=== PATIENT | female | born 1945 | race Caucasian/White ===

== ENCOUNTER 2020-01-17 12:02 | Emergency (ER) | payer OTHER ==
[~2020-01-17] VITALS: Ht 154.9 cm; Wt 76.2 kg
[~2020-01-17 12:02] MED LIST: AMITRIPTYLINE H10 MG PO; AMLODIPINE BESY10 MG PO; ASPIR 8181 MG PO; CALCIUM 600 +1 EAC2 PO; CLONIDINE HCL0.1 MG PO; FISH OIL PO; FLUCONAZOLE150 MG PO; LEVOTHYROXINE75 MCG PO; LUMIGAN EYE; METOPROLOL SUC100 MG PO; MULTIVITAMINS1 EAC7 PO; NORCO 5-325 TA1 EACH PO; OMEPRAZOLE20 M1 PO; POTASSIUM GLUCONATE PO; PROBIOTIC PO; TRIAMTERENE-HC1 EAC1 PO; TYLENOL WITH C1 EACH PO
--- OUTSIDE RECORDS SUMMARY | 2020-01-17 12:18 | XMS REPORT | Continuity of Care Document ---
Author Author Joann Pathgather ANNETTE Hernandez [facility] Address Unknown Phone Unavailable Care Team Providers Care Mortgage Lender Name Role Phone [employer] Information [employer] Unavailable Un available Problems Problem Status Onset Date Classification Date Reported Comments Source Hypertension Active 08/04/2013 [facility] Vaginitis Active 08/04/2013 [facility] Hypothyroidism Active 08/04/2013 [facility] Medications Medication Details Route Status Patient Instructions Ordering Provider Order Date Source Metoprolol Succinate ER 100 MG Oral Tabl et Extended Release 24 Hour ; Start Date: 08/03/2013; End Date: 05/1899 (Active) Active 08/03/2013 [facility] Triamterene-HCTZ 75-50 MG Oral Tablet ; Start Date: 06/29/2013; End Date: (Active) Active 06/29/2013 [facility] Clotrimazole-Betamethasone 1-0.05 % External Cream ; Start Date: 01/03/2013; End Date: 03/04/2013 (Active) Active 01/03/2013 [facility] Bystolic 10 MG Oral Tablet ; S tart Date: 03/15/2012; End Date: (Active) Active 03/15/2012 [facility] AmLODIPine Besylate 10 MG Oral Tablet ; Start Date: 03/15/2012; End Date: (Active) Active 03/15/2012 [facility] Chewable Calcium 1250 MG Oral Tablet Chewable ; Start Date: 03/15/2012 (Active) Active 03/15/2012 [facility] Multivitamins Oral Tablet ; St art Date: 03/15/2012 (Active) Active 03/15/2012 [facility] PriLOSEC OTC 20 MG Oral Tablet Delayed Release ; Start Date: 03/15/2012 (Active) Active 03/15/2012 [facility] Levothyroxine Sodium 75 MCG Oral Tablet ; Start Date: 03/15/2012; End Date: (Active) Active 03/15/2012 [facility] Hydrochlorothiazide 25 MG Oral Tablet ; Start Date: 03/15/2012 (Active) Active 03/15/2012 [facility] Amitriptyline HCl 10 MG Oral Tablet ; Start Date: 03/15/2012; End Date: (Active) Active 03/15/2012 [facility] Potassium 99 MG Oral Tablet ; Start Date: 03/15/2012 (Active) Active 03/15/2012 [facility] Fish Oil 1200 MG Oral Capsule ; Start Date: 03/15/2012 (Active) Active 03/15/2012 [facility] Tylenol Arthritis Pain 650 MG Oral Table t Extended Release ; Start Date: 03/15/2012 (Active) Active 03/15/2012 [facility] CloNIDine HCl 0.1 MG Oral Tablet ; Start Date: 03/15/2012; End Date: (Active) Active 03/15/2012 [facility] Multivitamins TABS ; Start Beny e: 03/15/2012 (Active) Active 03/15/2012 [facility] Chewable Calcium 1250 MG CHEW ; Start Date: 03/15/2012 (Active) Active 03/15/2012 [facility] Clotrimazole-Betamethasone 1-0.05 % External Cream ; Start Date: ; End Date: 2013 (Active) Active [facility] B-12 100 MCG Oral Tablet (Act clement) Active [facility] Aspirin 81 MG Oral Tablet (Ac tive) Active [facility] Symbicort 80-4.5 MCG/ACT Inhalation Aerosol (Active) Active [facility] Clotrimazole-Betamethasone 1-0.05 % External Cream (Active) Active [facility] Allergies, Adverse Reactions, Alerts Substance Category Reaction Severity Reaction type Status Date Reported Comments Source Dilaudid TABS drug allergy drug allergy Active [facility] Tetanus Toxoid Fluid SOLN drug allergy drug aller gy Active [facility] Immunizations Immunization Date Given Site Status Last Updated Comments Source Fluzone Intramuscular Injectable 02/20/2013 completed [facility] Influenza completed [facility] Results No Data Provided for This Section Pathology Reports No Data Provided for This Section Diagnostic Reports No Data Provided for This Section Consultation Notes No Data Provided for This Section Discharge Summaries No Data Provided for This Section History and Physicals No Data Provided for This Section Vital Signs No Data Provided for This Section Encounters Location Location Details Encounter Type Encounter Number Reason For Visit Attending Provider ADM Date DC Date Status Source AUDIT [id number] 04/05/2012 04/06/2012 [facility] [id number] 04/11/2012 04/12/2012 [facility] A[facility] [id number] 02/17/2013 02/17/2013 [facility] Sergio ELDRIDGE kevin: NEVESSAUD LAYNE, Status: Pen, Time: 11:45 AM [id number] 02/21/20 13 02/17/2013 [facility] AUDIT [id number] 06/29/2013 06/29/2013 [facility] AUDIT [id number] 08/03/2013 08/03/2013 [facility] AUDIT [id number] 08/04/2013 08/04/2013 [facility] Procedures No Data Provided for This Section Assessment and Plan No Data Provided for This Section Plan of Care Plan of Care Date Source [QLH] CBC (INCLUDES DIFF/PLT) 08/03/2013 Routine[QLH] CMP W/EGFR 08/03/2013 Routine[QH] LIPID PANEL WITH REFLEX TO DIRECT LDL 08/03/2013 Routine[QLH] TSH, 3RD GENERATION 08/03/2013 Routine 08/03/2013 [facility] Social History Social History Date Source Former Smoker (V15.82); (Active) Marital History - Currently (Active) Occupation: Comments: retired (Active) 08/04/2013 [facility] Family History No Data Provided for This Section Advance Directives Order Name Results Value Date Source Advance Directives Advance Dir ectives No Advance Directives available. 08/04/2013 [facility] Advance Directives Advance Dir ectives No Advance Directives available. 08/03/2013 [facility] Advance Directives Advance Dir ectives No Advance Directives available. 06/29/2013 [facility] Advance Directives Advance Dir ectives No Advance Directives available. 02/17/2013 [facility] Advance Directives Advance Dir ectives No Advance Directives available. 04/12/2012 [facility] Advance Directives Advance Dir ectives No Advance Directives available. 04/06/2012 [facility] Functional Status No Data Provided for This Section
--- OUTSIDE RECORDS SUMMARY | 2020-01-17 12:19 | XMS REPORT | Summary of Care ---
Author Author CAESAR Hurtado, ANNETTE MATTHEWS Organization Unknown Address Unknown Phone Unavailable Care Team Providers Care Sports Media Name Role Phone TOBIAS Denny, HUNTER Unavailable Unavailable CAESAR Hurtado, TIMMY Unavailable Unavailable DHEERAJ ALLEN SD, BERTA BREEN Unavailable Unavailable CAESAR ALLEN SD, TIMMY Unavailable Unavailable NKECHI SHELDON SD, TRISTON Unavailable Unavailable DHEERAJ Hurtado, BERTA Unavailable Unavailable TOBIAS MCGINNIS, HUNTER Unavailable Unavailable Anurag Terrell MD Unavailable Unavailable BRANDI ALLEN, FELY Menon Unavailable Unavailable FILEMON WRIGHT-C, CHERYL SUAZO Unavailable Unavailable LUIS ALLEN SD, UZIEL Lane Unavailable Unavailable Unavailable Unavailable Functional Status Name Dates Details Functional status health issues are not documented Status: Name Dates Details Cognitive status health issues are not d ocumented Status: Problems Name Dates Details Hand pain (729.5, M79.643) Status: Active Vitamin D deficiency (268.9, E55.9) Status: Active Advance directive discussed with patient (V65.49, Z71.89) Status: Active Encounter for mini-mental status examina tion Status: Active At moderate risk for fall (V15.88, Z91.8 1) Status: Active Colonoscopy refused (V64.2, Z53.20) Status: Active 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, 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: Active 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, M19.049) Status: Active 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, 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: Active Visit for screening mammogram (V76.12, Z 12.31) Status: Active BMI 33.0-33.9,adult (V85.33, Z68.33) Status: Active Encounter for monitoring allopurinol the rapy (V58.83, Z51.81) Status: Active Arthralgia of right knee (719.46, M25.56 1) Status: Active Essential (primary) hypertension (401.9, I10) Status: Active Hypothyroidism (244.9, E03.9) Status: Active Gout (274.9, M10.9) Status: Active Candidal intertrigo (112.3, B37.2) Status: Active Atypical mole (216.9, D22.9) Status: Active Ear pressure (388.8, H93.8X9) Status: Active Decreased hearing (389.9, H91.90) Status: Active Erosive osteoarthritis of both hands (71 5.89, M15.4) Status: Active Generalized osteoarthritis of multiple s ites (715.09, M15.9) Status: Active On prednisone therapy (V58.65, Z79.52) Status: Active Hypokalemia (276.8, E87.6) Status: Active Right wrist pain (719.43, M25.531) Status: Active Pain of wrist after trauma (719.43, M25. 539) Status: Active Medications Name Dates Details cloNIDine HCl - 0.1 MG Oral Tablet TAKE 1 TABLET TWICE DAILY. Quantity: 60 HUNTER EDOUARD * Start : 15-Mar-2012 Active Levothyroxine Sodium 75 MCG Oral Tablet TAKE 1 TABLET DAILY * Quantity: 90 Refills: 1 TOBIAS [address].HUNTER [place] * Start : 15-Mar-2012 Active Multivitamins TABS TAKE 1 TABLET DAILY. * Refills: 0 M.D. * Start : 15-Mar-2012 Active Fish Oil 1200 MG Oral Capsule TAKE 2 CAPSULE TWICE DAILY * Refills: 0 M.D. * Start : 15-Mar-2012 Active Triamterene-HCTZ 75-50 MG Oral Tablet TAKE 1 TABLET BY MOUTH DAILY * Quantity: 90 Refills: 1 HUNTER EDOUARD * Start : 29-Jun-2013 Active Aspirin 81 MG TABS TAKE 1 TABLET DAILY. * Refills: 0 M.D. Active Metoprolol Succinate ER 100 MG Oral Tablet Extended Release 24 Hour TAKE 1 TABLET BY MOUTH DAILY * Quantity: 90 Refills: 1 HUNTER EDOUARD * Start : 03-Aug-2013 Active Tylenol Arthritis Pain 650 MG TBCR TAKE 2 TABLET 2 TIMES DAILY NEEDED. * Refills: 0 M.D. * Start : 25-Jan-2015 Active Omeprazole 20 MG Oral Capsule Delayed Release * Refills: 0 M.D. Active Latanoprost 0.005 % Ophthalmic Solution INSTILL 1 DROP IN BOTH EYES AT BEDTIME. * Refills: 0 M.D. Active 2.5 ML Bottle Iron TABS TAKE 1 TABLET DAILY * Refills: 0 M.D. Active Amitriptyline HCl - 10 MG Oral Tablet TAKE 1-2 TABLET BY MOUTH AT BEDTIME * Quantity: 150 Refills: 1 HUNTER EDOUARD Active Calcium 1250 MG TABS TAKE 1 TABLET TWICE DAILY * Refills: 0 M.D. Active Allopurinol 300 MG Oral Tablet TAKE 1 TABLET BY MOUTH DAILY * Quantity: 90 Refills: 1 HUNTER EDOUARD * Start : 26-Sep-2018 Active Imodium A-D 2 MG Oral Capsule TAKE 0.5 CAPSULE DAILY * Refills: 0 M.D. * Start : 28-Sep-2018 Active predniSONE 2.5 MG Oral Tablet Take 1 or 2 tablets on Mondays, Wednesdays, Fridays prn joint pain. * Quantity: 72 Refills: 0 VIDAL FRANCISCO M.D.YIN * Start : 28-Sep-2018 Active Clotrimazole 1 % External Cream APPLY 2-3 TIMES DAILY TO AFFECTED AREA(S) FOR UP TO 2-3 WEEKS * Quantity: 1 Refills: 1 TOBIAS Hill.AHUNTER [place] * Start : 01-Sep-2019 Active 45 GM Tube Allergies and Adverse Reactions Name Dates Details Dilaudid TABS (Allergy) Status: Active Tetanus Toxoid Fluid SOLN (Allergy) Stat us: Active Past Medical History Name Dates Details History of arthritis (V13.4, Z87.39) Status: Resolved History of backache (V13.59, Z87.39) Status: Resolved History of Colon cancer screening (V76.5 1, Z12.11) Status: Resolved History of Depression screening (V79.0, Z13.31) Status: Resolved History of Depression screening (V79.0, Z13.31) Status: Resolved History of Depression screening (V79.0, Z13.31) Status: Resolved History of essential hypertension (V12.5 9, Z86.79) Status: Resolved History of Finger deformity (736.20, M20 .009) Status: Resolved History of Hay fever (477.9, J30.1) Status: Resolved History of hemorrhoids (V13.89, Z87.19) Status: Resolved History of History of cosmetic surgery ( V45.89, Z98.890) Status: Resolved History of hypertension (V12.59, Z86.79) Status: Resolved History of influenza vaccination (V49.89 , Z92.29) Status: Resolved History of influenza vaccination (V49.89 , Z92.29) Status: Resolved History of Left hip pain (719.45, M25.55 2) Status: Resolved History of Left wrist sprain (842.00, S6 3.502A) Status: Resolved History of Multiparity (V61.5, Z64.1) Status: Resolved History of nausea (V12.79, Z87.898) Status: Resolved History of Neck pain on right side (723. 1, M54.2) Status: Resolved History of Neck strain (847.0, S16.1XXA) Status: Resolved History of persistent cough (V12.69, Z87 .09) Status: Resolved History of pneumococcal vaccination (V49 .89, Z92.29) Status: Resolved History of pneumococcal vaccination (V49 .89, Z92.29) Status: Resolved History of Rectal pain (569.42, K62.89) Status: Resolved History of thyroid disease (V12.29, Z86. 39) Status: Resolved History of vaginitis (V13.29, Z87.42) Status: Resolved History of Wrist pain, acute, left (719. 43, M25.532) Status: Resolved Procedures Procedure Dates Details [QL] CMP W/EGFR Date: 13-Dec-2019 MR Wrist wo contrast [id number] Date: 18-Dec-2019 History of Wrist Surgery Completed History of Shoulder Surgery Completed History of Leg Repair Completed History of PTCA Completed Immunization Name Dates Details Influenza on: 15-Mar-2012 Fluzone INJ Lot #: [id number] on: 20-Feb-2013 Influenza on: 20-Feb-2015 Prevnar 13 Intramuscular Suspension Lot #: [id number] on: 22-Mar-2015 Fluzone Quadrivalent 0.5 ML Intramuscula r Suspension Prefilled Syringe Lot #: [id number] on: 28-Jan-2016 Fluzone Quadrivalent 0.5 ML Intramuscula r Suspension Prefilled Syringe Lot #: [id number] on: 28-Jan-2016 Fluzone Quadrivalent 0.5 ML Intramuscula r Suspension Prefilled Syringe Lot #: [id number] on: 15-Mar-2017 Pneumococcal polysaccharide vaccine, 23 valent Lot #: [id number] on: 15-Mar-2017 Fluzone High-Dose 0.5 ML Intramuscular S uspension Prefilled Syringe Lot #: [id number] on: 26-Jan-2018 Fluzone High-Dose 0.5 ML Intramuscular S uspension Prefilled Syringe Lot #: [id number] on: 01-Mar-2019 Family History Name Dates Details Family history of myocardial infarction (V17.3, Z82.49) Status: Active Name Dates Details Family history of myocardial infarction (V17.3, Z82.49) Status: Active Name Dates Details Family history of Heart trouble (429.9, I51.9) Status: Active Family history of cardiac disorder (V17. 49, Z82.49) Status: Active Family history of hypertension (V17.49, Z82.49) Status: Active Family history of arthritis (V17.7, Z82. 61) Status: Active Name Dates Details Family history of Heart trouble (429.9, I51.9) Status: Active Family history of cardiac disorder (V17. 49, Z82.49) Status: Active Family history of hypertension (V17.49, Z82.49) Status: Active Family history of arthritis (V17.7, Z82. 61) Status: Active Name Dates Details Family history of colitis (V18.59, Z83.7 9) Status: Active Family history of Heart trouble (429.9, I51.9) Status: Active Family history of cardiac disorder (V17. 49, Z82.49) Status: Active Family history of hypertension (V17.49, Z82.49) Status: Active Family history of arthritis (V17.7, Z82. 61) Status: Active Family history of TIAs (V17.1, Z82.3) Status: Active Name Dates Details Family history of Heart trouble (429.9, I51.9) Status: Active Family history of cardiac disorder (V17. 49, Z82.49) Status: Active Family history of hypertension (V17.49, Z82.49) Status: Active Family history of arthritis (V17.7, Z82. 61) Status: Active Social History Name Dates Details - Status: Name Dates Details Ex-smoker (finding) Ex-smoker (finding) Vital Signs Date Test Result Details :16 Systolic blood pressure 115 mm[Hg] Status: Comments : Location: RUE; Position: Sitting Diastolic blood pressure 72 mm[Hg] Status: Comment s: Location: RUE; Position: Sitting Body height 61 in Status: Weight 166 lb Status: Body mass index (BMI) [Ratio] 31.37 kg/m2 Status: Body surface area Derived from formula 1.75 m2 S tatus: Body temperature 96.8 f Status: Heart Rate 78 /min Status: Respiratory rate 15 /min Status: :30 Systolic blood pressure 129 mm[Hg] Status: Comments : Location: LUE; Position: Sitting Diastolic blood pressure 79 mm[Hg] Status: Comment s: [place] [facility] [place] Position: Sitting Body height 61 in Status: Weight 166.5 lb Status: Body mass index (BMI) [Ratio] 31.46 kg/m2 Status: Body surface area Derived from formula 1.75 m2 S tatus: Body temperature 96 f Status: Heart Rate 83 /min Status: Respiratory rate 14 /min Status: Results Date Description Value Details :52 [QL] CMP W/EGFR Comments: REPORT COM MENT:FASTING:NO GLUCOSE 120 mg/dl (Normal) Range: 65-13 9 Comments: Non-fasting reference interval UREA NITROGEN (BUN) 14 mg/dl (Normal) Range: 7- 25 CREATININE 1.05 mg/dl (Above high threshol d) Range: 0.60-0.93 Comments: For patients >49 years of age, the reference limitfor Creatinine is approximately 13% higher for peopleidentified as -Danish. eGFR NON-AFR. SENEGAL[place] 52 {ML/MIN/1.7} (Below l ow threshold) Range: > OR = 60 eGFR 61 {ML/MIN/1.7} (Normal) Range: > OR = 60 BUN/CREATININE RATIO 13 {CALC} (Normal) Range: 6-22 SODIUM 143 mmol/L (Normal) Range: 135- 146 POTASSIUM 3.1 mmol/L (Below low threshold ) Range: 3.5-5.3 CHLORIDE 103 mmol/L (Normal) Range: 98-1 10 CARBON DIOXIDE 31 mmol/L (Normal) Range: 20-32 CALCIUM 9.6 mg/dl (Normal) Range: 8.6-1 0.4 PROTEIN, TOTAL 5.9 g/dl (Below low threshold) Range: 6.1-8.1 ALBUMIN 3.6 g/dl (Normal) Range: 3.6-5. 1 GLOBULIN 2.3 {G/DL__CALC} (Normal) Range : 1.9-3.7 ALBUMIN/GLOBULIN RATIO 1.6 {CALC} (Normal) Rang e: 1.0-2.5 BILIRUBIN, TOTAL 0.3 mg/dl (Normal) Range: 0.2- 1.2 ALKALINE PHOSPHATASE 46 u/l (Normal) Range: 37- 153 AST 15 u/l (Normal) Range: 10-35 ALT 9 u/l (Normal) Range: 6-29 :52 [QL] CBC (INCLUDES DIFF/PLT) Comments: REPORT COMMENT:FASTING:NO WHITE BLOOD CELL COUNT 5.1 {Thousand/u} (Normal ) Range: 3.8-10.8 RED BLOOD CELL COUNT 3.65 {Million/uL} (Below l ow threshold) Range: 3.80-5.10 HEMOGLOBIN 12.0 g/dl (Normal) Range: 11.7- 15.5 HEMATOCRIT 35.1 % (Normal) Range: 35.0-45. 0 MCV 96.2 fL (Normal) Range: 80.0-10 0.0 MCH 32.9 pg (Normal) Range: 27.0-33 .0 MCHC 34.2 g/dl (Normal) Range: 32.0- 36.0 RDW 13.3 % (Normal) Range: 11.0-15. 0 PLATELET COUNT 277 {Thousand/u} (Normal) Range : 140-400 MPV 9.8 fL (Normal) Range: 7.5-12.5 ABSOLUTE NEUTROPHILS 2392 {cells/uL} (Normal) R eileen: 3041-3370 ABSOLUTE LYMPHOCYTES 2254 {cells/uL} (Normal) R eileen: 850-3900 ABSOLUTE MONOCYTES 383 {cells/uL} (Normal) Rang e: 200-950 ABSOLUTE EOSINOPHILS 51 {cells/uL} (Normal) Ran ge: 15-500 ABSOLUTE BASOPHILS 20 {cells/uL} (Normal) Range : 0-200 NEUTROPHILS 46.9 % (Normal) LYMPHOCYTES 44.2 % (Normal) MONOCYTES 7.5 % (Normal) EOSINOPHILS 1.0 % (Normal) BASOPHILS 0.4 % (Normal) :27 XRAY Wrist complete ( min.3 views) [id number] Wrist complete ( min.3 views) SEE NOTES Co mments: EXAM: Wrist complete DXHISTORY: - M25.531 Pain in right wrist; M15.9 Polyosteoarthritis,unspecified;M15.4 Erosive (osteo)arthritis; Z79.52 correction (current) useof systemic steroidsCOMPARISON: None3 views of the right wristFINDINGS:There is advanced joint space narrowing at the thumb carpometacarpal andtriscaphe joints. No fracture or dislocation is seen.IMPRESSION: Advanced degenerative change.--Read by: Camryn Berry MDDictated Date/time: 12/15/19 15:08Electronically Signed by: Camryn Berry MD 12/14/2014:10FINAL REPORT Plan of Care Name Dates Details Planned Observations Planned Goals not documented Planned Encounters Appointment; TIMMY FRANCISCO M.D. On: 11-Jan-2020 14:00 Appointment; MYAH BOWIE M.D. On: 01-Mar-2020 14:45 Interventions Provided Discussion/Summary* Dear Ms. CARTER, * As stated in the voicemail I left for you, your wrist x-rays show osteoarthritis. I'm ordering a right wrist MRI to look for a trauma-related tear along your wrist. * Sincerely, * Dr. Francisco Instructions Name Dates Details Instructions not documented Encounters Appointment; HUNTER COLLADO P.A. Encounter Diagnosis: Problem not documented On: 26-Jan-2018 10:30 Appointment; HUNTER COLLADO P.A. Encounter Diagnosis: Problem not documented On: 22-Feb-2018 13:30 Appointment; FELY PAZ M.D. Encounter Diagnosis: Problem not documented On: 10-Mar-2018 13:00 Appointment; HUNTER COLLADO P.A. Encounter Diagnosis: Problem not documented On: 19-Apr-2018 13:00 Appointment; CHERYL COLBERT APRN Encounter Diagnosis: Problem not documented On: 10-Jun-2018 16:15 Appointment; FELY PAZ M.D. Encounter Diagnosis: Problem not documented On: 16-Jun-2018 13:15 Appointment; FELY PAZ M.D. Encounter Diagnosis: Problem not documented On: 07-Jul-2018 14:45 Appointment; FELY PAZ M.D. Encounter Diagnosis: Problem not documented On: 26-Jul-2018 9:45 Appointment; FELY PAZ M.D. Encounter Diagnosis: Problem not documented On: 06-Sep-2018 13:00 Appointment; HUNTER COLLADO P.A. Encounter Diagnosis: Problem not documented On: 22-Sep-2018 14:30 Appointment; TIMMY FRANCISCO M.D. Encounter Diagnosis: Problem not documented On: 28-Sep-2018 15:00 Appointment; TIMMY FRANCISCO M.D. Encounter Diagnosis: Problem not documented On: 07-Nov-2018 14:30 Appointment; TIMMY FRANCISCO M.D. Encounter Diagnosis: Problem not documented On: 08-Dec-2018 14:00 Appointment; FELY PAZ M.D. Encounter Diagnosis: Problem not documented On: 22-Dec-2018 13:00 Appointment; TRISTON ARBOLEDA D.O. Encounter Diagnosis: Problem not documented On: 01-Mar-2019 16:00 Appointment; HUNTER COLLADO P.A. Encounter Diagnosis: Problem not documented On: 30-Mar-2019 14:30 Appointment; TIMMY FRANCISCO M.D. Encounter Diagnosis: Problem not documented On: 12-Jun-2019 14:30 Appointment; SIRIA CASTANEDA APRN Encounter Diagnosis: Problem not documented On: 01-Sep-2019 10:30 Appointment; HUNTER COLLADO P.A. Encounter Diagnosis: Problem not documented On: 21-Sep-2019 11:00 Appointment; HUNTER COLLADO P.A. Encounter Diagnosis: Problem not documented On: 06-Dec-2019 14:30 Appointment; TIMMY FRANCISCO M.D. Encounter Diagnosis: Problem not documented On: 11-Dec-2019 14:00
--- OUTSIDE RECORDS SUMMARY | 2020-01-17 12:19 | XMS REPORT | Summary of Care ---
Author ANNETTE Warren Organization Unknown Address Unknown Phone Unavailable Care Team Providers Care Manager Of Finance Name Role Phone TOBIAS Denny, HUNTER Unavailable Unavailable CAESAR Hurtado, TIMMY Unavailable Unavailable DHEERAJ ALLEN [place], BERTA BREEN Unavailable Unavailable CAESAR ALLEN [place], TIMMY Unavailable Unavailable NKECHI SHELDON [place], TRISTON Unavailable Unavailable DHEERAJ Hurtado, BERTA Unavailable Unavailable TOBIAS MCGINNIS, HUNTER Unavailable Unavailable Anurag Terrell MD Unavailable Unavailable BRANDI ALLEN, FELY Menon Unavailable Unavailable FILEMON WRIGHT-C, CHERYL SUAZO Unavailable Unavailable LUIS ALLEN [place], UZIEL Lane Unavailable Unavailable Unavailable Unavailable Functional [...] Active Decreased hearing (389.9, H91.90) Status: Active Right wrist pain (719.43, M25.531) Status: Active 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 Quantity: 60 HUNTER EDOUARD * Start : 15-Mar-2012 Active Levothyroxine Sodium 75 MCG Oral Tablet TAKE 1 TABLET DAILY * Quantity: 90 Refills: 1 HUNTER EDOUARD * Start : 15-Mar-2012 Active Multivitamins TABS TAKE 1 TABLET DAILY. * Refills: 0 * Start : 15-Mar-2012 Active Fish Oil 1200 MG Oral Capsule TAKE 2 CAPSULE TWICE DAILY * Refills: 0 * Start : 15-Mar-2012 Active Triamterene-HCTZ 75-50 MG Oral Tablet TAKE 1 TABLET BY MOUTH DAILY * Quantity: 90 Refills: 1 HUNTER EDOUARD * Start : 29-Jun-2013 Active Aspirin 81 MG TABS TAKE 1 TABLET DAILY. * Refills: 0 Active Metoprolol Succinate ER 100 MG Oral Tablet Extended Release 24 Hour TAKE 1 TABLET BY MOUTH DAILY * Quantity: 90 Refills: 1 HUNTER EDOUARD * Start : 03-Aug-2013 Active Tylenol Arthritis Pain 650 MG TBCR TAKE 2 TABLET 2 TIMES DAILY NEEDED. * Refills: 0 * Start : 25-Jan-2015 Active Omeprazole 20 MG Oral Capsule Delayed Release * Refills: 0 Active Latanoprost 0.005 % Ophthalmic Solution INSTILL 1 DROP IN BOTH EYES AT BEDTIME. * Refills: 0 Active 2.5 ML Bottle Iron TABS TAKE 1 TABLET DAILY * Refills: 0 Active Amitriptyline HCl - 10 MG Oral Tablet TAKE 1-2 TABLET BY MOUTH AT BEDTIME * Quantity: 150 Refills: 1 HUNTER EDOUARD Active Calcium 1250 MG TABS TAKE 1 TABLET TWICE DAILY * Refills: 0 Active Allopurinol 300 MG Oral Tablet TAKE 1 TABLET BY MOUTH DAILY * Quantity: 90 Refills: 1 HUNTER EDOUARD * Start : 26-Sep-2018 Active Imodium A-D 2 MG Oral Capsule TAKE 0.5 CAPSULE DAILY * Refills: 0 * Start : 28-Sep-2018 Active predniSONE 2.5 MG Oral Tablet Take 1 or 2 tablets on Mondays, Wednesdays, Fridays prn joint pain. * Quantity: 72 Refills: 0 TIMMY MAYNARD M.D. * Start : 28-Sep-2018 Active Clotrimazole 1 % External Cream APPLY 2-3 TIMES DAILY TO AFFECTED AREA(S) FOR UP TO 2-3 WEEKS * Quantity: 1 Refills: 1 HUNTER EDOUARD * Start : 01-Sep-2019 Active 45 GM [...] Dates Details [QL] CMP W/EGFR Date: 13-Dec-2019 XRAY Wrist complete ( min.3 views) [id number] Date: 11-Dec-2019 History of Wrist Surgery Completed History of Shoulder Surgery Completed History of Leg Repair Completed History of PTCA Completed Immunization Name Dates Details Influenza on: 15-Mar-2012 Fluzone INJ Lot #: [id number] on: 20-Feb-2013 Influenza on: 20-Feb-2015 Prevnar 13 Intramuscular Suspension Lot #: [id number] on: 22-Mar-2015 Fluzone Quadrivalent 0.5 ML Intramuscula r Suspension Prefilled Syringe Lot #: [id number] on: 28-Jan-2016 Fluzone Quadrivalent 0.5 ML Intramuscula r Suspension Prefilled Syringe Lot #: [id number] on: 28-Jan-2016 Fluzone Quadrivalent 0.5 ML Intramuscula r Suspension Prefilled Syringe Lot #: [id number] on: 15-Mar-2017 Pneumococcal polysaccharide vaccine, 23 valent Lot #: [id number] on: 15-Mar-2017 Fluzone High-Dose 0.5 ML Intramuscular S uspension Prefilled Syringe Lot #: [id number] on: 26-Jan-2018 Fluzone High-Dose 0.5 ML Intramuscular S uspension Prefilled Syringe Lot #: [id number] on: 01-Mar-2019 Family History Name Dates Details [...] pressure 115 mm[Hg] Status: Comments : Location: [facility]; Position: Sitting Diastolic blood pressure 72 mm[Hg] Status: Comment s: Location: [facility]; Position: Sitting Body height 61 in Status: Weight 166 lb Status: Body mass index (BMI) [Ratio] 31.37 kg/m2 Status: Body surface area Derived from formula 1.75 m2 S tatus: Body temperature 96.8 f Status: Heart Rate 78 /min Status: Respiratory rate 15 /min Status: :30 Systolic blood pressure 129 mm[Hg] Status: Comments : Location: E; Position: Sitting Diastolic blood pressure 79 mm[Hg] Status: Comment s: Location: [facility]; Position: Sitting Body height 61 in Status: [...] is approximately 13% higher for peopleidentified as -Portuguese. eGFR NON-AFR. STATELESS 52 {ML/MIN/1.7} (Below l ow threshold) Range: [...] ABSOLUTE NEUTROPHILS 2392 {cells/uL} (Normal) R eileen: 7024-1360 ABSOLUTE LYMPHOCYTES 2254 {cells/uL} (Normal) R eileen: 850-3900 ABSOLUTE MONOCYTES 383 {cells/uL} (Normal) Rang e: 200-950 ABSOLUTE EOSINOPHILS 51 {cells/uL} (Normal) Ran ge: 15-500 ABSOLUTE BASOPHILS 20 {cells/uL} (Normal) Range : 0-200 NEUTROPHILS 46.9 % (Normal) LYMPHOCYTES 44.2 % (Normal) MONOCYTES 7.5 % (Normal) EOSINOPHILS 1.0 % (Normal) BASOPHILS 0.4 % (Normal) Plan of Care Name Dates Details Planned Observations Planned Goals not documented Planned Encounters Appointment; TIMMY MAYNARD M.D. On: 11-Jan-2020 14:00 Appointment; MYAH BOWIE M.D. On: 01-Mar-2020 14:45 Interventions Provided Labs/Procedures/Imaging* [QL] CMP W/EGFR; To Be Done: 13 Dec 2019 Instructions Name Dates Details Instructions not documented [...] not documented On: 22-Sep-2018 14:30 Appointment; TIMMY MAYNARD M.D. Encounter Diagnosis: Problem not documented On: 28-Sep-2018 15:00 Appointment; TIMMY MAYNARD M.D. Encounter Diagnosis: Problem not documented On: 07-Nov-2018 14:30 Appointment; TIMMY MAYNARD M.D. Encounter Diagnosis: Problem not documented On: 08-Dec-2018 14:00 Appointment; FELY PAZ M.D. Encounter Diagnosis: Problem not documented On: 22-Dec-2018 13:00 Appointment; TRISTON ARBOLEDA D.O. Encounter Diagnosis: Problem not documented On: 01-Mar-2019 16:00 Appointment; HUNTER COLLADO P.ATonny Encounter Diagnosis: Problem not documented On: 30-Mar-2019 14:30 Appointment; TIMMY MAYNARD M.D. Encounter Diagnosis: Problem not documented On: 12-Jun-2019 14:30 Appointment; SIRIA CASTANEDA APRN Encounter Diagnosis: Problem not documented On: 01-Sep-2019 10:30 Appointment; HUNTER COLLADO PTonnyATonny Encounter Diagnosis: Problem not documented On: 21-Sep-2019 11:00 Appointment; HUNTER COLLADO PTonnyATonny Encounter Diagnosis: Problem not documented On: 06-Dec-2019 14:30 Appointment; TIMMY MAYNARD M.D. Encounter Diagnosis: Problem not documented On: 11-Dec-2019 14:00
--- OUTSIDE RECORDS SUMMARY | 2020-01-17 12:19 | XMS REPORT | Summary of Care ---
Author ANNETTE Beasley Organization Unknown Address Unknown Phone Unavailable Care Team Providers Care Drug Department Worker Name Role Phone TOBIAS Denny, HUNTER Unavailable Unavailable Lionel Johns Unavailable Unavailable DHEERAJ ALLEN [place], BERTA BREEN Unavailable Unavailable CAESAR ALLEN [place], TIMMY Unavailable Unavailable NKECHI SHELDON [place], TRISTON Unavailable Unavailable DHEERAJ Hurtado, BERTA Unavailable Unavailable TOBIAS MCGINNIS, HUNTER Unavailable Unavailable Nidhi ALLEN, Anurag Unavailable Unavailable BRANDI ALLEN, FELY Menon Unavailable Unavailable FILEMON SILO MAN-C, CHERYL SUAZO Unavailable Unavailable LUIS ALLEN [place], UZIEL Lane Unavailable Unavailable Unavailable Unavailable Functional Status Name Dates Details Functional status health issues are not documented Status: Name Dates Details Cognitive status health issues are not d ocumented Status: Problems Name Dates Details Hand pain (729.5, M79.643) Status: Active Vitamin D deficiency (268.9, E55.9) Status: Active Chest pain (786.50, R07.9) Status: Active Seasonal allergic rhinitis (477.9, J30.2 ) Status: Active Lymphadenopathy, submandibular (785.6, R 59.0) Status: Active Fatigue (780.79, R53.83) Status: Active Lesion of right lung (518.89, R91.1) Status: Active Atypical mole (216.9, D22.9) Status: Active Candidal intertrigo (112.3, B37.2) Status: Active Gout (274.9, M10.9) Status: Active Essential (primary) hypertension (401.9, I10) Status: Active Anxiety (300.00, F41.9) Status: Active Hypothyroidism (244.9, E03.9) Status: Active BMI 33.0-33.9,adult (V85.33, Z68.33) Status: Active RLS (restless legs syndrome) (333.94, G2 5.81) Status: Active Polyarthritis of multiple sites (716.59, M13.0) Status: Active Visit for screening mammogram (V76.12, Z 12.31) Status: Active Function kidney decreased (593.9, N28.9) Status: Active Ear pressure (388.8, H93.8X9) Status: Active Decreased hearing (389.9, H91.90) Status: Active Tinnitus of both ears (388.30, H93.13) Status: Active 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, 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: Active Glaucoma (365.9, H40.9) Status: Active Advance directive discussed with patient (V65.49, Z71.89) Status: Active At moderate risk for fall (V15.88, Z91.8 1) Status: Active Colonoscopy refused (V64.2, Z53.20) Status: Active Encounter for mini-mental status examina tion Status: Active Nonsurgical dumping syndrome (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 Quantity: 60 COLLADO P.A., HUNTER * Start : 15-Mar-2012 Active Levothyroxine Sodium [...] Refills: 0 * Start : 28-Sep-2018 Active Clotrimazole 1 [...] M25.532) Status: Resolved Procedures Procedure Dates Details History of Leg Repair Completed History of PTCA Completed History of Shoulder Surgery Completed History of Wrist Surgery Completed Immunization Name Dates Details Influenza on: 15-Mar-2012 Fluzone INJ Lot #: [id number] on: 20-Feb-2013 Influenza on: 20-Feb-2015 Prevnar 13 Intramuscular Suspension Lot #: [id number] on: 22-Mar-2015 Fluzone Quadrivalent 0.5 ML Intramuscula r Suspension Prefilled Syringe Lot #: [id number] on: 28-Jan-2016 Fluzone Quadrivalent 0.5 ML Intramuscula r Suspension Prefilled Syringe Lot #: [id number] on: 28-Jan-2016 Fluzone Quadrivalent 0.5 ML Intramuscula r Suspension Prefilled Syringe Lot #: [id number] on: 15-Mar-2017 Pneumococcal polysaccharide vaccine, 23 valent Lot #: [id number] on: 15-Mar-2017 Fluzone High-Dose 0.5 ML Intramuscular S uspension Prefilled Syringe Lot #: [id number] on: 26-Jan-2018 Fluzone High-Dose 0.5 ML Intramuscular S uspension Prefilled Syringe Lot #: [id number] on: 01-Mar-2019 Family History Name Dates Details Family history of myocardial infarction (V17.3, Z82.49) Status: Active Name Dates Details Family history of myocardial infarction (V17.3, Z82.49) Status: Active Name Dates Details Family history of cardiac disorder (V17. 49, Z82.49) Status: Active Family history of Heart trouble (429.9, I51.9) Status: Active Family history of arthritis (V17.7, Z82. 61) Status: Active Family history of hypertension (V17.49, Z82.49) Status: Active Name Dates Details Family history of cardiac disorder (V17. 49, Z82.49) Status: Active Family history of Heart trouble (429.9, I51.9) Status: Active Family history of arthritis (V17.7, Z82. 61) Status: Active Family history of hypertension (V17.49, Z82.49) Status: Active Name Dates Details Family history of TIAs (V17.1, Z82.3) Status: Active Family history of cardiac disorder (V17. 49, Z82.49) Status: Active Family history of Heart trouble (429.9, I51.9) Status: Active Family history of arthritis (V17.7, Z82. 61) Status: Active Family history of hypertension (V17.49, Z82.49) Status: Active Family history of colitis (V18.59, Z83.7 9) Status: Active Name Dates Details Family history of cardiac disorder (V17. 49, Z82.49) Status: Active Family history of Heart trouble (429.9, I51.9) Status: Active Family history of arthritis (V17.7, Z82. 61) Status: Active Family history of hypertension (V17.49, Z82.49) Status: Active Social History Name Dates Details - Status: Name Dates Details Ex-smoker (finding) Ex-smoker (finding) Vital Signs Date Test Result Details [id number] Systolic blood pressure 129 mm[Hg] Status: Comments : Location: [facility]; Position: Sitting Diastolic blood pressure 79 mm[Hg] Status: Comment s: Location: [facility]; Position: Sitting Body height 61 in Status: Weight 166.5 lb Status: Body mass index (BMI) [Ratio] 31.46 kg/m2 Status: Body surface area Derived from formula 1.75 m2 S tatus: Body temperature 96 f Status: Heart Rate 83 /min Status: Respiratory rate 14 /min Status: Results Date Description Value Details Results not documented Plan of Care Name Dates Details Planned Observations Planned Goals not documented Planned Encounters Dermatology Referral ENT Referral Appointment; TIMMY MAYNARD M.D. On: 11-Dec-2019 14:00 Instructions Name Dates Details Instructions not documented Encounters Appointment; HUNTER COLLADO P.A. Encounter Diagnosis: Problem not documented On: 26-Jan-2018 10:30 Appointment; HUNTER COLLADO P.A. Encounter Diagnosis: Problem not documented On: 22-Feb-2018 13:30 Appointment; FELY PAZ M.D. Encounter Diagnosis: Problem not documented On: 10-Mar-2018 13:00 Appointment; HUNTER COLLADO P.A. Encounter Diagnosis: Problem not documented On: 19-Apr-2018 13:00 Appointment; CEHRYL COLBERT APRN Encounter Diagnosis: Problem not documented [...]
--- OUTSIDE RECORDS SUMMARY | 2020-01-17 12:19 | XMS REPORT | Continuity of Care Document ---
Author Author [facility] t Organization [facility] Address [address] [place] [address] Phone Unavailable Care Team Providers Care Director Multimedia Name Role Phone HUNTER COLLADO, P.ATonny Attphys Unavailable TIMMY MAYNARD M.D. Attphys Unavailable SIRIA CASTANEDA APRN Attphys Unavailable TRISTON ARBOLEDA D.O. Attphys Unavailable FELY PAZ M.D. Attphys Unavailable CHERYL COLBERT APRN Attphys Unavailable DAYAMI ROBBINS M.D. Attphys Unavailable LALITA VALENCIA M.D. Attphys Unavailable LETY KELLEY M.D. Attphys Unavailable SAUD ORELLANA M.D. Attphys Unavailable RAÚL BOYD M.D. Attphys Unavailable SAUD NEVES NP Attphys Unavailable CARIN DENNIS, P.ATonny Attphys Unavailable Problems Condition Name Condition Details Condition Category Status Onset Date Resolution Date Last Treatment Date Treating Clinician Comments Source History of backache History of backache Problem Resolved [facility] History of Colon cancer screening History of Colon cancer screen ing Problem Resolved [facility] History of Depression screening History of Depression screening Problem Resolved [facility] History of hypertension History of hypertension Problem Resolved [facility] History of Finger deformity History of Finger deformity Problem Resolved [facility] History of Hay fever History of Hay fever Problem Resolved [facility] History of hemorrhoids History of hemorrhoids Problem Resolved [facility] History of History of cosmetic surgery History of History of cosmetic surgery Problem Resolved [facility] History of pneumococcal vaccination History of pneumococcal vacc ination Problem Resolved [facility] History of Left hip pain History of Left hip pain Problem Resolved [facility] History of Left wrist sprain History of Left wrist sprain Problem Re solved [facility] History of Multiparity History of Multiparity Problem Resolved [facility] History of nausea History of nausea Problem Resolved [facility] Cervicalgia Cervicalgia Problem Active [facility] History of Neck strain History of Neck strain Problem Resolved [facility] History of persistent cough History of persistent cough Problem Resolved [facility] History of Rectal pain History of Rectal pain Problem Resolved [facility] History of thyroid disease History of thyroid disease Problem Resolved [facility] History of vaginitis History of vaginitis Problem Resolved [facility] History of Wrist pain, acute, left History of Wrist pain, acute, left Problem Resolved [facility] Hand pain [facility] pain [facility] Vitamin D deficiency Vitamin D deficiency Problem Active [facility] Advance directive discussed with patient Advance direc tive discussed with patient Problem Active [facility] At moderate risk for fall At moderate risk for fall Problem Active [facility] Colonoscopy refused Colonoscopy refused Problem Active [facility] Nonsurgical dumping syndrome Nonsurgical dumping syndrome Problem Active [facility] 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 Problem Active [facility] Seasonal allergic rhinitis Seasonal allergic rhinitis Problem Active [facility] Chronic diarrhea Chronic diarrhea Problem Active [facility] Irritable bowel syndrome with diarrhea Irritable bowel syndr ome with diarrhea Problem Active [facility] Fatigue Fatigue Problem Active [facility] Postmenopausal estrogen deficiency Postmenopausal estrogen defic iency Problem Active [facility] Lesion of right lung Lesion of right lung Problem Active [facility] Chest pain Chest pain [facility] Function kidney decreased Function kidney decreased Problem Active [facility] Glaucoma Glaucoma Problem [facility] RLS (restless legs syndrome) RLS (restless legs syndrome) Problem Active [facility] Anxiety Anxiety Problem Active [facility] Tinnitus of both ears Tinnitus of both ears Problem Active [facility] Polyarthritis of multiple sites Polyarthritis of multiple sites Pro blem Active [facility] Lymphadenopathy, submandibular Lymphadenopathy, submandibular Problem Active [facility] Facial mass Facial mass Problem Active [facility] Neck mass Neck mass Problem Active [facility] Osteoarthritis of left thumb Osteoarthritis of left thumb Problem Active [facility] arthritis [facility] arthritis Problem Active [facility] On prednisone therapy On prednisone therapy Problem Active [facility] 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 Problem Active [facility] Visit for screening mammogram Visit for screening mammogram Problem Active [facility] BMI 33.0-33.9,adult BMI 33.0-33.9,adult Problem Active [facility] Encounter for monitoring allopurinol therapy Encounter for monitoring allopurinol therapy Problem Active [facility] 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 Problem Active [facility] Generalized osteoarthritis of multiple sites Generaliz ed osteoarthritis of multiple sites Problem Active [facility] Arthralgia of right knee Arthralgia of right knee Problem Active [facility] Essential (primary) hypertension Essential (primary) hypertensio n Problem Active [facility] Hypothyroidism Hypothyroidism Problem Active [facility] Gout Gout Problem Active [facility] Candidal intertrigo Candidal intertrigo Problem Active [facility] Atypical mole Atypical mole Problem Active [facility] Ear pressure Ear pressure Problem Active [facility] Decreased hearing Decreased hearing Problem Active [facility] Right wrist pain Right wrist pain Problem Active [facility] Hypokalemia Hypokalemia Problem Active [facility] Pain of wrist after trauma Pain of wrist after trauma Problem Active [facility] Encounter for mini-mental status examination Encounter for mini-mental status examination Problem Active [facility] Hypertension Hype rtension Active 08/04/2013 [place] [facility] Problem Active 2013-08-04 16:03:01 Ric Womack Vaginitis Vagi nitis Active 08/04/2013 [facility] Problem Active 2013-08-04 16:03:01 Joann Womack Hypothyroidism Hypo thyroidism Active 08/04/2013 [facility] Problem Active 2013-08-04 16:03:01 M cole Womack Allergies, Adverse Reactions, Alerts Allergy Name Allergy Type Status Severity Reaction(s) Onset Date Inacti ve Date Treating Clinician Comments Source Dilaudid TABS Allergy to drug (finding) Active [facility] Tetanus Toxoid Fluid SOLN Allergy to drug (finding) Active [facility] Dilaudid TABS Dilaudid TABS Active [facility] Vu Tetanus Toxoid Fluid SOLN Tetanus Toxoid Fluid SOLN Active [facility] Family History Family Member Diagnosis Comments Start Date Stop Date Source Grandmother Family history of myocardial infarction [facility] Grandfather Family history of myocardial infarction [facility] [place] Family history of Heart trouble [facility] [place] Family history of cardiac disorder [facility] [place] Family history of hypertension [facility] [place] Family history of arthritis [facility] Grandparent Family history of Heart trouble [facility] Grandparent Family history of cardiac disorder [facility] Grandparent Family history of hypertension [facility] Grandparent Family history of arthritis [facility] Mother Family history of colitis [facility] Mother Family history of Heart trouble [facility] Mother Family history of cardiac disorder [facility] Mother Family history of hypertension [facility] Mother Family history of arthritis [facility] Mother [facility] history of TIAs [facility] Father Family history of Heart trouble [facility] Father Family history of cardiac disorder [facility] Father Family history of hypertension [facility] Father Family history of arthritis [facility] Social History Social Habit Start Date Stop Date Quantity Comments Source Social History 2013-08-04 16:03:01 2013-08-04 16:03:01 [facility] Smoking Status Start Date Stop Date Source Ex-smoker (finding) [facility] Medications Ordered Medication Name Filled Medication Name Start Date Stop Da te Current Medication? Ordering Clinician Indication Dosage Frequency Signature (SIG) Comments Components Source Potassium Chloride ER 20 MEQ Oral Tablet Extended Rele ase Potassium Chloride ER 20 MEQ Oral Tablet Extended Release 2019-12-29 00:00:00 Yes HUNTER RUTHERFORDOS P.A. 1 QD TAKE 1 TABLET DAILY [facility] Clotrimazole 1 % External Cream Clotrimazole 1 % External Cr eam 2019-09-01 00:00:00 Yes HUNTER COLLADO P.A. A PPLY 2-3 TIMES DAILY TO AFFECTED AREA(S) FOR UP TO 2-3 WEEKS [facility] Imodium A-D 2 MG Oral Capsule Imodium A-D 2 MG Oral Capsule 2018 00:00:00 Yes .5 QD TAKE 0.5 CAPSULE DAILY [facility] predniSONE 2.5 MG Oral Tablet predniSONE 2.5 MG Oral Tablet 2018 00:00:00 Yes TIMMY helton 1 or 2 tablets on Mondays, Wednesdays, Fridays prn joint pain. [facility] Tylenol Arthritis Pain 650 MG TBCR Tylenol Arthritis Pain 65 0 MG TBCR 2015-01-25 00:00:00 Yes TAKE 2 TABLET 2 TIMES DAILY A S NEEDED. [facility] B-12 100 MCG Oral Tablet 2013-08-04 16:03:01 Yes (Active) Joann Womack Aspirin 81 MG Oral Tablet 2013-08-04 16:03:01 Yes (Active) Joann Womack Symbicort 80-4.5 MCG/ACT Inhalation Aerosol 2013-08-04 16:03:01 Yes (Active) Joann Womack Clotrimazole-Betamethasone 1-0.05 % External Cream 2013-07 21:32:50 Yes (Active) Joann Garcia chapincitoangelito Metoprolol Succinate ER 100 MG Oral Tablet Extended Release 24 Hour 2013-08-03 05:00:00 Yes ; Start Date: 4; End Date: (Active) Joann Womack Metoprolol Succinate ER 100 MG Oral Tablet Extended Re lease 24 Hour Metoprolol Succinate ER 100 MG Oral Tablet Extended Release 24 Hour 2013-08-03 00:00:00 Yes HUNTER Denny 1 QD TAKE 1 TABLET BY MOUTH DAILY [facility] Triamterene-HCTZ 75-50 MG Oral Tablet 2013-06-29 06:00:00 Y es ; Start Date: 06/29/2013; End Date: (Active) Joann Womack Clotrimazole-Betamethasone 1-0.05 % External Cream 2012-12 05:00:00 Yes ; Start Date: 01/03/2013; End Date: 02/21 (Active) Joann Womack Bystolic 10 MG Oral Tablet 2012-03-15 05:00:00 Yes ; Start Date: 03/15/2012; End Date: (Active) Joann Womack AmLODIPine Besylate 10 MG Oral Tablet 2012-03-15 05:00:00 Y es ; Start Date: 03/15/2012; End Date: (Active) Joann Womack Chewable Calcium 1250 MG Oral Tablet Chewable 2012-03-15 05:00:0 0 Yes ; Start Date: 03/15/2012 (Active) Joann Womack Multivitamins Oral Tablet 2012-03-15 05:00:00 Yes ; Start Date: 03/15/2012 (Active) Joann Womack PriLOSEC OTC 20 MG Oral Tablet Delayed Release 2012-03-15 05:00: 00 Yes ; Start Date: 03/15/2012 (Active) Joann Womack Levothyroxine Sodium 75 MCG Oral Tablet 2012-03-15 05:00:00 Yes ; Start Date: 03/15/2012; End Date: (Active) Joann Womack Hydrochlorothiazide 25 MG Oral Tablet 2012-03-15 05:00:00 Y es ; Start Date: 03/15/2012 (Active) Joann Womack Amitriptyline HCl 10 MG Oral Tablet 2012-03-15 05:00:00 Yes ; Start Date: 03/15/2012; End Date: (Active) Joann Womack Potassium 99 MG Oral Tablet 2012-03-15 05:00:00 Yes ; Start Date: 03/15/2012 (Active) Joann Womack Fish Oil 1200 MG Oral Capsule 2012-03-15 05:00:00 Yes ; Start Date: 03/15/2012 (Active) Joann Womack Tylenol Arthritis Pain 650 MG Oral Tablet Extended Release 2012-03-15 05:00:00 Yes ; Start Date: 03/15/2012 (Activ e) Joann Womack CloNIDine HCl 0.1 MG Oral Tablet 2012-03-15 05:00:00 Yes ; Start Date: 03/15/2012; End Date: (Active) Joann Vu Multivitamins TABS 2012-03-15 05:00:00 Yes ; Start Date: 03/15/2012 (Active) Joann Vu Chewable Calcium 1250 MG CHEW 2012-03-15 05:00:00 Yes ; Start Date: 03/15/2012 (Active) Joann Womack cloNIDine HCl - 0.1 MG Oral Tablet cloNIDine HCl - 0.1 MG Or al Tablet 2012-03-15 00:00:00 Yes HUNTER COLLADO P.ATonny 1 Q0.5D TAKE 1 TABLET TWI CE DAILY. [facility] Levothyroxine Sodium 75 MCG Oral Tablet Levothyroxine Sodium 75 MCG Oral Tablet 2012-03-15 00:00:00 Yes HUNTER COLLADO P.A. 1 QD TAKE 1 TABLET DAILY [facility] Multivitamins TABS Multivitamins TABS 2012-03-15 00:00:00 Yes 1 QD TAKE 1 TABLET DAILY. [facility] Fish Oil 1200 MG Oral Capsule Fish Oil 1200 MG Oral Capsule 2011 00:00:00 Yes 2 Q0.5D TAKE 2 CAPSULE TWICE DAILY [facility] Clotrimazole-Betamethasone 1-0.05 % External Cream 1899-05 06:00:00 Yes ; Start Date: ; End Date: 09/21 (Active) [facility] Aspirin 81 MG TABS Aspirin 81 MG TABS Yes 1 QD TA KE 1 TABLET DAILY. [facility] Omeprazole 20 MG Oral Capsule Delayed Release Omeprazo le 20 MG Oral Capsule Delayed Release Yes [facility] Latanoprost 0.005 % Ophthalmic Solution Latanoprost 0.005 % Ophthalmic Solution Yes INSTILL 1 DROP IN BOTH EYES AT BEDTIME. [facility] Iron TABS Iron TABS Yes 1 QD TAKE 1 TABLET DAILY [facility] Amitriptyline HCl - 10 MG Oral Tablet Amitriptyline HCl - 10 MG Ora l Tablet Yes HUNTER COLLADO P.A. TAKE 1-2 TABLET BY MOUTH AT B EDTIME [facility] Calcium 1250 MG TABS Calcium 1250 MG TABS Yes 1 Q0.5D TAKE 1 TABLET TWICE DAILY [facility] Immunizations Ordered Immunization Name Filled Immunization Name Date Status Comments Source Fluzone High-Dose 0.5 ML Intramuscular Suspension Prefilled Syringe 2019-03-01 16:23:00 Completed [facility] Fluzone High-Dose 0.5 ML Intramuscular Suspension Prefilled Syringe 2018-01-26 14:05:00 Completed [facility] Fluzone Quadrivalent 0.5 ML Intramuscular Suspension Prefill ed Syringe 2017-03-15 14:16:00 Completed [facility] Pneumococcal polysaccharide vaccine, 23 valent 2017-02 14:16:00 Completed [facility] Fluzone Quadrivalent 0.5 ML Intramuscular Suspension Prefill ed Syringe 2016-01-28 15:39:00 Completed [facility] Fluzone Quadrivalent 0.5 ML Intramuscular Suspension Prefill ed Syringe 2016-01-28 08:57:00 Completed [facility] Prevnar 13 Intramuscular Suspension 2015-03-22 11:50:00 Co mpleted [facility] Influenza 2015-02-20 00:00:00 Completed [facility] Fluzone INJ 2013-02-20 11:17:00 Completed [facility] Influenza 2012-03-15 00:00:00 Completed [facility] Vital Signs Vital Name Observation Time Observation Value Comments Source Systolic blood pressure 2020-01-15 13:45:00 185 mm[Hg] Loca tion: LUE; Position: Sitting [facility] Diastolic blood pressure 2020-01-15 13:45:00 84 mm[Hg] Loc ation: LUE; Position: Sitting [facility] Body height 2020-01-15 13:45:00 61 [in_us] [facility] Weight 2020-01-15 13:45:00 172.25 [lb_av] [facility] Body mass index (BMI) [Ratio] 2020-01-15 13:45:00 32.55 kg/m2 [facility] Body temperature 2020-01-15 13:45:00 98.5 [degF] Method: Temporal [facility] Heart Rate 2020-01-15 13:45:00 78 /min [facility] Respiratory rate 2020-01-15 13:45:00 16 /min [facility] Systolic blood pressure 2019-12-11 14:16:00 115 mm[Hg] Loca tion: RUE; Position: Sitting [facility] Diastolic blood pressure 2019-12-11 14:16:00 72 mm[Hg] Loc ation: RUE; Position: Sitting [facility] Body height 2019-12-11 14:16:00 61 [in_us] [facility] Weight 2019-12-11 14:16:00 166 [lb_av] [facility] Body mass index (BMI) [Ratio] 2019-12-11 14:16:00 31.37 kg/m2 [facility] Body temperature 2019-12-11 14:16:00 96.8 [degF] [facility] Heart Rate 2019-12-11 14:16:00 78 /min [facility] Respiratory rate 2019-12-11 14:16:00 15 /min [facility] Systolic blood pressure 2019-12-06 14:30:00 129 mm[Hg] Loca tion: LUE; Position: Sitting [facility] Diastolic blood pressure 2019-12-06 14:30:00 79 mm[Hg] Loc ation: LUE; Position: Sitting [facility] Body height 2019-12-06 14:30:00 61 [in_us] [facility] Weight 2019-12-06 14:30:00 166.5 [lb_av] [facility] Body mass index (BMI) [Ratio] 2019-12-06 14:30:00 31.46 kg/m2 [facility] Body temperature 2019-12-06 14:30:00 96 [degF] [facility] Heart Rate 2019-12-06 14:30:00 83 /min [facility] Respiratory rate 2019-12-06 14:30:00 14 /min [facility] Systolic blood pressure 2019-09-21 11:01:00 119 mm[Hg] Loca tion: LUE; Position: Sitting [facility] Diastolic blood pressure 2019-09-21 11:01:00 76 mm[Hg] Loc ation: LUE; Position: Sitting [facility] Body height 2019-09-21 11:01:00 61 [in_us] [facility] Weight 2019-09-21 11:01:00 167.5625 [lb_av] [facility] Body mass index (BMI) [Ratio] 2019-09-21 11:01:00 31.66 kg/m2 [facility] Body temperature 2019-09-21 11:01:00 97.9 [degF] Method: Temporal [facility] Heart Rate 2019-09-21 11:01:00 65 /min [facility] Respiratory rate 2019-09-21 11:01:00 16 /min [facility] Systolic blood pressure 2019-09-01 10:38:00 142 mm[Hg] Loca tion: LUE; Position: Sitting [facility] Diastolic blood pressure 2019-09-01 10:38:00 85 mm[Hg] Loc ation: LUE; Position: Sitting [facility] Body height 2019-09-01 10:38:00 61 [in_us] [facility] Weight 2019-09-01 10:38:00 167.5 [lb_av] [facility] Body mass index (BMI) [Ratio] 2019-09-01 10:38:00 31.65 kg/m2 [facility] Body temperature 2019-09-01 10:38:00 97.5 [degF] Method: Temporal [facility] Heart Rate 2019-09-01 10:38:00 77 /min [facility] Respiratory rate 2019-09-01 10:38:00 16 /min [facility] BP Systolic 2019-06-12 14:23:00 125 mm[Hg] Location: ROBB; Positi on: Sitting [facility] BP Diastolic 2019-06-12 14:23:00 77 mm[Hg] Location: ROBB; Positi on: Sitting [facility] Height 2019-06-12 14:23:00 61 [in_us] [facility] Weight 2019-06-12 14:23:00 172 [lb_av] [facility] Body Mass Index Calculated 2019-06-12 14:23:00 32.5 kg/m2 [facility] Heart Rate 2019-06-12 14:23:00 80 /min [facility] Respiration Rate 2019-06-12 14:23:00 16 /min [facility] BP Systolic 2019-03-30 14:36:00 116 mm[Hg] Location: ROBB; Positi on: Sitting [facility] BP Diastolic 2019-03-30 14:36:00 72 mm[Hg] Location: ROBB; Positi on: Sitting [facility] Height 2019-03-30 14:36:00 61 [in_us] [facility] Weight 2019-03-30 14:36:00 177 [lb_av] [facility] Body Mass Index Calculated 2019-03-30 14:36:00 33.44 kg/m2 [facility] Temperature 2019-03-30 14:36:00 97.4 [degF] Method: Temporal [facility] Heart Rate 2019-03-30 14:36:00 67 /min [facility] Respiration Rate 2019-03-30 14:36:00 16 /min [facility] BP Systolic 2018-12-22 13:02:00 113 mm[Hg] Location: TEJAE; Positi on: Sitting [facility] BP Diastolic 2018-12-22 13:02:00 66 mm[Hg] Location: LUE; Positi on: Sitting [facility] Height 2018-12-22 13:02:00 61 [in_us] [facility] Weight 2018-12-22 13:02:00 172 [lb_av] [facility] Body Mass Index Calculated 2018-12-22 13:02:00 32.5 kg/m2 [facility] Heart Rate 2018-12-22 13:02:00 61 /min [facility] BP Systolic 2018-12-08 13:52:00 116 mm[Hg] Location: TEJAE; Positi on: Sitting [facility] BP Diastolic 2018-12-08 13:52:00 70 mm[Hg] Location: ROBB; Positi on: Sitting [facility] Height 2018-12-08 13:52:00 61 [in_us] [facility] Weight 2018-12-08 13:52:00 172.125 [lb_av] [facility] [facility] Body Mass Index Calculated 2018-12-08 13:52:00 32.52 kg/m2 [facility] Heart Rate 2018-12-08 13:52:00 81 /min [facility] Respiration Rate 2018-12-08 13:52:00 16 /min [facility] O2 SAT 2018-11-07 14:48:00 99 % Source: RA [facility] BP Systolic 2018-11-07 14:46:00 120 mm[Hg] Location: ROBB; Positi on: Sitting [facility] BP Diastolic 2018-11-07 14:46:00 70 mm[Hg] Location: ROBB; Positi on: Sitting [facility] Height 2018-11-07 14:46:00 61 [in_us] [facility] Weight 2018-11-07 14:46:00 170 [lb_av] [facility] Body Mass Index Calculated 2018-11-07 14:46:00 32.12 kg/m2 [facility] Temperature 2018-11-07 14:46:00 97.4 [degF] Method: Oral [facility] Heart Rate 2018-11-07 14:46:00 60 /min [facility] Respiration Rate 2018-11-07 14:46:00 20 /min [facility] BP Systolic 2018-09-28 14:56:00 133 mm[Hg] Location: RUE; Positi on: Sitting [facility] BP Diastolic 2018-09-28 14:56:00 74 mm[Hg] Location: RUE; Positi on: Sitting [facility] Height 2018-09-28 14:56:00 61 [in_us] [facility] Weight 2018-09-28 14:56:00 172 [lb_av] Universi ty [facility] Body Mass Index Calculated 2018-09-28 14:56:00 32.5 kg/m2 [facility] Temperature 2018-09-28 14:56:00 97.7 [degF] Method: Oral [facility] Heart Rate 2018-09-28 14:56:00 58 /min [facility] Respiration Rate 2018-09-28 14:56:00 16 /min [facility] BP Systolic 2018-09-22 14:57:00 102 mm[Hg] Location: LUE; Positi on: Sitting [facility] BP Diastolic 2018-09-22 14:57:00 61 mm[Hg] Location: LUE; Positi on: Sitting [facility] Height 2018-09-22 14:57:00 61 [in_us] [facility] Weight 2018-09-22 14:57:00 173.125 [lb_av] [facility] Body Mass Index Calculated 2018-09-22 14:57:00 32.71 kg/m2 [facility] Temperature 2018-09-22 14:57:00 96.9 [degF] Method: Temporal [facility] Heart Rate 2018-09-22 14:57:00 58 /min [facility] Respiration Rate 2018-09-22 14:57:00 16 /min Univ ersity [facility] BP Systolic 2018-09-06 14:59:00 101 mm[Hg] [facility] BP Diastolic 2018-09-06 14:59:00 62 mm[Hg] [facility] Height 2018-09-06 14:59:00 61 [in_us] [facility] Weight 2018-09-06 14:59:00 162 [lb_av] Universi [facility] Body Mass Index Calculated 2018-09-06 14:59:00 30.61 kg/m2 [facility] Temperature 2018-09-06 14:59:00 63 [degF] Universi ty [facility] BP Systolic 2018-07-26 10:01:00 89 mm[Hg] [facility] BP Diastolic 2018-07-26 10:01:00 58 mm[Hg] [facility] Height 2018-07-26 10:01:00 61 [in_us] [facility] Weight 2018-07-26 10:01:00 162 [lb_av] [facility] Body Mass Index Calculated 2018-07-26 10:01:00 30.61 kg/m2 [facility] Heart Rate 2018-07-26 10:01:00 67 /min [facility] BP Systolic 2018-07-07 15:06:00 135 mm[Hg] Location: GISELA Positi on: Sitting [facility] BP Diastolic 2018-07-07 15:06:00 75 mm[Hg] Location: GISELA Positi on: Sitting [facility] Height 2018-07-07 15:06:00 61 [in_us] [facility] Weight 2018-07-07 15:06:00 162.5 [lb_av] [facility] Body Mass Index Calculated 2018-07-07 15:06:00 30.7 kg/m2 [facility] Heart Rate 2018-07-07 15:06:00 59 /min [facility] BP Systolic 2018-06-16 13:31:00 126 mm[Hg] Location: GISELA Positi on: Sitting [facility] BP Diastolic 2018-06-16 13:31:00 79 mm[Hg] Location: IGSELA Positi on: Sitting [facility] Height 2018-06-16 13:31:00 61 [in_us] Universi ty [facility] Weight 2018-06-16 13:31:00 163.375 [lb_av] [facility] Body Mass Index Calculated 2018-06-16 13:31:00 30.87 kg/m2 [facility] Heart Rate 2018-06-16 13:31:00 81 /min Universi ty [facility] Respiration Rate 2018-06-16 13:31:00 16 /min [facility] BP Systolic 2018-06-10 16:23:00 113 mm[Hg] Location: MAME [facility] BP Diastolic 2018-06-10 16:23:00 66 mm[Hg] Location: MAME [facility] Height 2018-06-10 16:23:00 61 [in_us] Universi ty [facility] Weight 2018-06-10 16:23:00 168.5 [lb_av] [facility] Body [facility] Index Calculated 2018-06-10 16:23:00 31.84 kg/m2 [facility] Temperature 2018-06-10 16:23:00 97.9 [degF] [facility] Respiration Rate 2018-06-10 16:23:00 16 /min [facility] Heart Rate 2018-06-10 16:23:00 69 /min [facility] BP Systolic 2018-04-19 13:11:00 124 mm[Hg] Location: GISELA Positi on: Sitting [facility] BP Diastolic 2018-04-19 13:11:00 67 mm[Hg] Location: GISELA Positi on: Sitting [facility] Height 2018-04-19 13:11:00 61 [in_us] [facility] Weight 2018-04-19 13:11:00 166.125 [lb_av] [facility] Body Mass Index Calculated 2018-04-19 13:11:00 31.39 kg/m2 [facility] Temperature 2018-04-19 13:11:00 97.5 [degF] Method: Temporal [facility] Heart Rate 2018-04-19 13:11:00 73 /min [facility] Respiration Rate 2018-04-19 13:11:00 16 /min [facility] BP Systolic 2018-03-10 13:32:00 136 mm[Hg] Location: GISELA Positi on: Sitting [facility] BP Diastolic 2018-03-10 13:32:00 79 mm[Hg] Location: LUE; Positi on: Sitting [facility] Height 2018-03-10 13:32:00 61 [in_us] [facility] Weight 2018-03-10 13:32:00 168.25 [lb_av] [facility] Body Mass Index Calculated 2018-03-10 13:32:00 31.79 kg/m2 [facility] Heart Rate 2018-03-10 13:32:00 54 /min [facility] BP Systolic 2018-02-22 13:45:00 103 mm[Hg] Location: LUE; Positi on: Sitting [facility] BP Diastolic 2018-02-22 13:45:00 67 mm[Hg] Location: LUE; Positi on: Sitting [facility] Height 2018-02-22 13:45:00 61 [in_us] [facility] Weight 2018-02-22 13:45:00 168.8 [lb_av] [facility] Body Mass Index Calculated 2018-02-22 13:45:00 31.89 kg/m2 [facility] Temperature 2018-02-22 13:45:00 96.7 [degF] Method: Temporal [facility] Heart Rate 2018-02-22 13:45:00 65 /min [facility] Respiration Rate 2018-02-22 13:45:00 14 /min [facility] BP Systolic 2018-01-26 13:55:00 90 mm[Hg] Location: LUE; Positi on: Sitting [facility] BP Diastolic 2018-01-26 13:55:00 60 mm[Hg] Location: LUE; Positi on: Sitting [facility] Height 2018-01-26 13:55:00 61 [in_us] [facility] Heart Rate 2018-01-26 13:55:00 65 /min [facility] BP Systolic 2017-11-22 15:11:00 120 mm[Hg] Location: LUE; Positi on: Sitting [facility] BP Diastolic 2017-11-22 15:11:00 74 mm[Hg] Location: LUE; Positi on: Sitting [facility] Height 2017-11-22 15:11:00 61 [in_us] [facility] Weight 2017-11-22 15:11:00 171.375 [lb_av] [facility] Body Mass Index Calculated 2017-11-22 15:11:00 32.38 kg/m2 [facility] Temperature 2017-11-22 15:11:00 97.6 [degF] Method: Temporal [facility] Heart Rate 2017-11-22 15:11:00 91 /min Quality: Normal [facility] Respiration Rate 2017-11-22 15:11:00 16 /min Quality: Normal [facility] BP Systolic 2017-11-18 13:43:00 119 mm[Hg] Location: ROBB; Positi on: Sitting [facility] BP Diastolic 2017-11-18 13:43:00 69 mm[Hg] Location: ROBB; Positi on: Sitting [facility] Height 2017-11-18 13:43:00 61 [in_us] [facility] Weight 2017-11-18 13:43:00 176.125 [lb_av] [facility] Body Mass Index Calculated 2017-11-18 13:43:00 33.28 kg/m2 [facility] Temperature 2017-11-18 13:43:00 96.9 [degF] Method: Temporal [facility] Heart Rate 2017-11-18 13:43:00 59 /min [facility] Respiration Rate 2017-11-18 13:43:00 16 /min [facility] BP Systolic 2017-08-19 13:52:00 131 mm[Hg] Location: ROBB; Positi on: Sitting [facility] BP Diastolic 2017-08-19 13:52:00 85 mm[Hg] Location: ROBB; Positi on: Sitting [facility] Height 2017-08-19 13:52:00 61 [in_us] [facility] Weight 2017-08-19 13:52:00 187.375 [lb_av] [facility] Body Mass Index Calculated 2017-08-19 13:52:00 35.4 kg/m2 [facility] Temperature 2017-08-19 13:52:00 98.6 [degF] Method: Temporal [facility] Heart Rate 2017-08-19 13:52:00 84 /min [facility] Respiration Rate 2017-08-19 13:52:00 16 /min [facility] Procedures Procedure Date / Time Performed Performing Clinician Sour e [QL] CMP W/EGFR 2020-01-15 00:00:00 [facility] XRAY Spine cervical minimum of 4 views [id number] 2020-01-15 00:00:00 [facility] MR Wrist wo contrast [id number] 2019-12-18 00:00[facility]00 [facility] [QL] CMP W/EGFR 2019-12-13 00:00:00 [facility] [QL] CBC (INCLUDES DIFF/PLT) 2019-12-11 00:00:00 [facility] [QL] CMP W/EGFR 2019-12-11 00:00:00 [facility] XRAY Wrist complete ( min.3 views) [id number] 2019-12-11 00:00:00 [facility] [Q] LIPID PANEL WITH REFLEX TO DIRECT LDL 2019-09-21 00:00:00 [facility] [QL] CMP W/EGFR 2019-09-21 00:00:00 [facility] [QL] TSH, 3RD GENERATION W/REFLEX TO FT4 2019-09-21 00:00:00 [facility] [QL] T3, TOTAL 2019-09-21 00:00:00 [facility] [QL] T4, FREE 2019-09-21 00:00:00 [facility] [QL] URIC ACID 2019-09-21 00:00:00 [facility] [QLH] CBC (INCLUDES DIFF/PLT) 2019-06-12 00:00:00 [facility] [QLH] URIC ACID 2019-06-12 00:00:00 [facility] [QLH] TSH, 3RD GENERATION W/REFLEX TO FT4 2019-03-30 00:00:00 [facility] [place] Breast mammogram screen bilateral [id number] 2019-03-30 00:00:00 [facility] XRAY Knee AP and lateral [id number] 2018-09-28 00:00:00 [facility] XRAY Hand AP lateral Bilateral [id number] 2018-09-28 00:00:00 [facility] [QLH] TSH, 3RD GENERATION W/REFLEX TO FT4 2018-09-22 00:00:00 [facility] [Q] LIPID PANEL WITH REFLEX TO DIRECT LDL 2018-09-22 00:00:00 [facility] [QL] CMP W/EGFR 2018-09-22 00:00:00 [facility] [QL] T3, TOTAL 2018-09-22 00:00:00 [facility] [QL] T4, FREE 2018-09-22 00:00:00 [facility] US Guided Needle BX/Asp/Inj/NeedLoc [id number] 2018-06-16 00:00:00 [facility] [O] Basic Audiometry Screen 2018-03-10 00:00:00 [facility] [Q] LIPID PANEL WITH REFLEX TO DIRECT LDL 2018-02-22 00:00:00 [facility] [QL] CMP W/EGFR 2018-02-22 00:00:00 [facility] [QL] TSH, 3RD GENERATION W/REFLEX TO FT4 2018-02-22 00:00:00 [facility] [QLH] T3, TOTAL 2018-02-22 00:00:00 [facility] [QL] T4, FREE 2018-02-22 00:00:00 [facility] [[facility]] CBC (INCLUDES DIFF/PLT) 2017-08-19 00:00:00 [facility] [QL] CMP W/EGFR 2017-08-19 00:00:00 [facility] [Q] LIPID PANEL WITH REFLEX TO DIRECT LDL 2017-08-19 00:00:00 [facility] [QL] TSH, 3RD GENERATION 2017-08-19 00:00:00 [facility] [place] Digital Mammo Screening Alfie [id number] 2017-08-19 00:00:00 [facility] XRAY Hip bilateral w pelvis and both lat hips [id number] 2017-08-19 0 0:00:00 [facility] [place] Breast mammogram screen bilateral [id number] 2017-03-15 00:00:00 [facility] History of Leg Repair [facility] History of PTCA [facility] Plan of Care Planned Activity Planned Date Details Comments Source Diagnostic Test Pending 2018-03-10 00:00:00 [O] Basic Audiom etry Screen [code = [O] Basic Audiometry Screen] [facility] Scheduled Test 2013-08-03 21:32:50 Plan of Care [code = 1877 6-5] [facility] Appointment 2020-03-01 14:45:00 [facility] Start Date/Time End Date/Time Encounter Type Admission Type Attendi [facility] Care Department Encounter ID Source 2020-01-15 13:30:00 2020-01-15 13:30:00 Appointment; HUNTER COLLADO P.A. CAMPOS, BERTHA, P.A. [facility] [address] [id number] [facility] 2019-12-11 14:00:00 2019-12-11 14:00:00 Appointment; TIMMY MAYNARD M.D. JAMALYARIA, FAROKH, M.D. [facility] ite3 [id number] [facility] 2019-12-06 14:30:00 2019-12-06 14:30:00 Appointment; HUNTER COLLADO P.A. CAMPOS, BERTHA, P.A. [facility] [place] [address] [id number] [facility] 2019-09-21 11:00:00 2019-09-21 11:00:00 Appointment; HUNTER COLLADO P.A. CAMPOS, BERTHA, P.A. [facility] [id number] [facility] 2019-09-01 10:30:00 2019-09-01 10:30:00 Appointment; SIRIA CASTANEDA A PRN SAXE, KAILA, APRN [facility] [id number] [facility] 2019-06-12 14:30:00 2019-06-12 14:30:00 Appointment; TIMMY MAYNARD M.D. JAMALYARIA, FAROKH, M.D. [facility] [id number] [facility] 2019-03-30 14:30:00 2019-03-30 14:30:00 Appointment; HUNTER COLLADO P.A. CAMPOS, BERTHA, P.A. [facility] [place] [address] [id number] [facility] 2019-03-01 16:00:00 2019-03-01 16:00:00 Appointment; TRISTON ARBOLEDA D.O. YEH, SHAO-CHUN, D.O. [facility] [id number] [facility] 2018-12-22 13:00:00 2018-12-22 13:00:00 Appointment; FELY PAZ M.D. BYRD, MICHAEL, M.D. [facility] [id number] [facility] 2018-12-08 14:00:00 2018-12-08 14:00:00 Appointment; TIMMY MAYNARD M.D. JAMALYARIA, FAROKH, M.D. [facility] [id number] [facility] 2018-11-07 14:30:00 2018-11-07 14:30:00 Appointment; TIMMY MAYNARD M.D. JAMALYARIA, FAROKH, M.D. [facility] [id number] [facility] 2018-09-28 15:00:00 2018-09-28 15:00:00 Appointment; TIMMY MAYNARD M.D. JAMALYARIA, FAROKH, M.D. [facility] [id number] [facility] 2018-09-22 14:30:00 2018-09-22 14:30:00 Appointment; HUNTER COLLADO P.A. CAMPOS, BERTHA, P.A. [facility] [address] [id number] [facility] 2018-09-06 13:00:00 2018-09-06 13:00:00 Appointment; FELY PAZ M.D. BYRD, MICHAEL, M.D. [facility] Otorhinolaryngology [facility] [id number] [facility] 2018-07-26 09:45:00 2018-07-26 09:45:00 Appointment; FELY PAZ M.D. BYRD, MICHAEL, M.D. UTP Otorhinolaryngology [facility] [id number] [facility] 2018-07-07 14:45:00 2018-07-07 14:45:00 Appointment; FELY PAZ M.D. BYRD, MICHAEL, M.D. [facility] [address] [id number] [facility] 2018-06-16 13:15:00 2018-06-16 13:15:00 Appointment; FELY PAZ M.D. BYRD, MICHAEL, M.D. [facility] [id number] [facility] 2018-06-10 16:15:00 2018-06-10 16:15:00 Appointment; CHERYL COLBERT AP RN TRAN, THUY, APRN [facility] [id number] [facility] 2018-04-19 13:00:00 2018-04-19 13:00:00 Appointment; HUNTER COLLADO P.A. CAMPOS, BERTHA, P.ATonny [facility] [id number] [facility] 2018-03-10 13:00:00 2018-03-10 13:00:00 Appointment; FELY PAZ M.D. BYRD, MICHAEL, M.D. [facility] [address] [id number] [facility] 2018-02-22 13:30:00 2018-02-22 13:30:00 Appointment; HUNTER COLLADO P.A. CAMPOS, BERTHA, P.ATonny [facility] [address] [id number] [facility] 2018-01-26 10:30:00 2018-01-26 10:30:00 Appointment; HUNTER COLLADO P.A. CAMPOS, BERTHA, P.ATonny [facility] [address] [id number] [facility] 2017-11-22 14:45:00 2017-11-22 14:45:00 Appointment; HUNTER COLLADO P.A. CAMPOS, BERTHA, P.ATonny [facility] [address] [id number] [facility] 2017-11-18 13:15:00 2017-11-18 13:15:00 Appointment; HUNTER COLLADO P.A. CAMPOS, BERTHA PTonnyATonny JAMES [facility] [address] [id number] [facility] 2017-08-19 13:45:00 2017-08-19 13:45:00 Appointment; HUNTER COLLADO P.A. CAMPOS, BERTHA, P.A. ERIKA [facility] [address] [id number] [facility] 2017-03-15 13:00:00 2017-03-15 13:00:00 Appointment; HUNTER COLLADO P.A. CAMPOS, BERTHA, P.A. ERIKA UTP [id number] [facility] 2017-02-01 13:40:00 2017-02-01 13:40:00 Appointment; STEPHANIE ROBBINS M.D. DHOBLE, ABHIJEET, M.D. [facility] UTP [id number] [facility] 2017-01-19 13:00:00 2017-01-19 13:00:00 Appointment; HUNTER COLLADO P.A. CAMPOS, BERTHA, P.ATonny JAMES UTP [id number] [facility] 2017-01-11 14:20:00 2017-01-11 14:20:00 Appointment; STEPHANIE ROBBINS M.D. DHOBLE, ABHIJEET, M.D. UTP UTP [id number] [facility] 2017-01-05 11:30:00 2017-01-05 11:30:00 Appointment; TIMMY MAYNARD M.D. JAMALYARIA, FAROKH, M.D. [facility] UTP [id number] [facility] 2017-01-01 14:00:00 2017-01-01 14:00:00 Appointment; LALITA VALENCIA M.D. VAZQUEZ, NOEMI, M.D. [facility] UTP [id number] [facility] 2016-12-24 13:45:00 2016-12-24 13:45:00 Appointment; HUNTER COLLADO P.A. CAMPOS, BERTHA, P.A. ERIKA UTP [id number] [facility] 2016-12-18 13:15:00 2016-12-18 13:15:00 Appointment; LALITA VALENCIA M.D. VAZQUEZ, NOEMI, M.D. [facility] UTP [id number] [facility] 2016-11-27 13:30:00 2016-11-27 13:30:00 Appointment; HUNTER COLLADO P.A. CAMPOS, BERTHA, P.A. [facility] UTP [id number] [facility] 2016-11-16 11:15:00 2016-11-16 11:15:00 Appointment; LETY KELLEY M.D. CATALANO, MARC, M.D. [facility] UTP [id number] [facility] 2016-10-21 16:00:00 2016-10-21 16:00:00 Appointment; MARTIR ORELLANA M.D. WILLISTON, HUBERT, M.D. UTP UTP [id number] [facility] 2016-09-24 14:00:00 2016-09-24 14:00:00 Appointment; LETY KELLEY M.D. CATALANO, MARC, M.D. [facility] UTP [id number] [facility] 2016-09-10 10:30:00 2016-09-10 10:30:00 Appointment; LETY KELLEY M.D. CATALANO, MARC, M.D. [facility] UTP [id number] [facility] 2016-08-25 13:45:00 2016-08-25 13:45:00 Appointment; HUNTER COLLADO P.A. CAMPOS, BERTHA, P.ATonny UTP UTP [id number] [facility] 2016-06-30 11:30:00 2016-06-30 11:30:00 Appointment; TIMMY MAYNARD M.D. JAMALYARIA, FAROKH, M.D. [facility] UTP [id number] [facility] 2016-06-23 14:00:00 2016-06-23 14:00:00 Appointment; HUNTER COLLADO P.A. CAMPOS, BERTHA, P.ATonny UTP UTP [id number] [facility] 2016-03-12 11:00:00 2016-03-12 11:00:00 Appointment; RAÚL BOYD M.D. LI-YUNG HING, ANDREW, M.D. [facility] UTP [id number] [facility] 2016-02-25 13:00:00 2016-02-25 13:00:00 Appointment; TIMMY MAYNARD M.D. JAMALYARIA, FAROKH, M.D. [facility] UTP [id number] [facility] 2016-01-28 15:30:00 2016-01-28 15:30:00 Appointment; HUNTER COLLADO P.A. CAMPOS, BERTHA, P.A. [facility] UTP [id number] [facility] 2015-12-24 13:00:00 2015-12-24 13:00:00 Appointment; TIMMY MAYNARD M.D. JAMALYARIA, FAROKH, M.D. UTP UTP [id number] [facility] 2015-12-18 10:15:00 2015-12-18 10:15:00 Appointment; SAUD NEVES N P ELLIS, MARK, NP UTP UTP [id number] [facility] 2015-08-20 13:00:00 2015-08-20 13:00:00 Appointment; SAUD NEVES N P ELLIS, MARK, NP UTP UTP [id number] [facility] 2015-06-11 14:30:00 2015-06-11 14:30:00 Appointment; CARIN DENNIS P.A. CRUZ, LETICIA, P.A. UTP UTP [id number] [facility] 2013-08-04 11:03:02 2013-08-04 11:03:01 Outpatient MHIE MHIE [id number] 2013-08-03 16:32:50 2013-08-03 16:32:50 Outpatient MHIE MHIE [id number] 2013-06-29 15:04:18 2013-06-29 15:04:17 Outpatient MHIE MHIE [id number] 2013-02-17 14:02:47 2013-02-17 14:02:47 Outpatient MHIE MHIE [id number] 2012-04-11 19:34:40 2012-04-11 19:34:25 Outpatient MHIE MHIE [id number] 2012-04-05 18:26:18 2012-04-05 18:26:03 Outpatient MHIE MHIE [id number] Results Test Description Test Time Test Comments Results Result Comments Source [QL] CMP W/EGFR 2020-01-15 15:00:00 Test Item GLUCOSE; Normal (test code = 1547-9) 116 mg/dl 65-139 N Non-fasting reference interval UREA NITROGEN (BUN) (test code = UREA NITROGEN (BUN)) 13 mg/dl 7-25 N CREATININE (test code = CREATININE) 1.05 mg/dl 0.60-0.93 For patients >49 years of age, the reference limitfor Creatinine is approximately 13% higher for peopleidentified as -Sudanese. eGFR NON-AFR. SINGAPOREAN (test code = eGFR NON-AFR. SINGAPOREAN) 52 {ML/MIN/1.7} > OR = 60 eGFR (test code = eGFR ) 61 {ML/MIN/1.7} > OR = 60 N BUN/CREATININE RATIO (test code = BUN/CREATININE RATIO) 12 {CALC} 6-22 N SODIUM (test code = SODIUM) 149 mmol/L 135-146 POTASSIUM (test code = POTASSIUM) 2.7 mmol/L 3.5-5.3 Verified by repeat analysis. CHLORIDE (test code = CHLORIDE) 98 mmol/L 98-110 N CARBON DIOXIDE (test code = CARBON DIOXIDE) 40 mmol/L 20-32 CALCIUM (test code = CALCIUM) 9.3 mg/dl 8.6-10.4 N PROTEIN, TOTAL (test code = PROTEIN, TOTAL) 5.8 g/dl 6.1-8.1 ALBUMIN (test code = ALBUMIN) 3.6 g/dl 3.6-5.1 N GLOBULIN (test code = GLOBULIN) 2.2 {G/DL CALC} 1.9-3.7 N ALBUMIN/GLOBULIN RATIO (test code = ALBUMIN/GLOBULIN RATIO) 1.6 {CALC} 1.0-2.5 N BILIRUBIN, TOTAL; Normal (test code = 72773-9) 0.5 mg/dl 0.2-1.2 N ALKALINE PHOSPHATASE (test code = ALKALINE PHOSPHATASE) 56 u/l 37-153 N AST; Normal (test code = 1916-6) 11 u/l 10-35 N ALT; Normal (test code = 1742-6) 7 u/l 6-29 N [facility][QL] CMP [id number] 14:30:00* Test Item Value Reference Range Interpretation Comments GLUCOSE; Normal (test code = 1547-9) 101 mg/dl 65-139 N Non-fasting reference interval UREA NITROGEN (BUN) (test code = UREA NITROGEN (BUN)) 14 mg/dl 7-25 N CREATININE (test code = CREATININE) 1.00 mg/dl 0.60-0.93 For patients >49 years of age, the reference limitfor Creatinine is approximately 13% higher for peopleidentified as -Sudanese. eGFR NON-AFR. SINGAPOREAN (test code = eGFR NON-AFR. SINGAPOREAN) 55 {ML/MIN/1.7} > OR = 60 eGFR (test code = eGFR ) 64 {ML/MIN/1.7} > OR = 60 N BUN/CREATININE RATIO (test code = BUN/CREATININE RATIO) 14 {CALC} 6-22 N SODIUM (test code = SODIUM) 147 mmol/L 135-146 POTASSIUM (test code = POTASSIUM) 2.7 mmol/L 3.5-5.3 Verified by repeat analysis. CHLORIDE (test code = CHLORIDE) 106 mmol/L 98-110 N CARBON DIOXIDE (test code = CARBON DIOXIDE) 32 mmol/L 20-32 N CALCIUM (test code = CALCIUM) 8.5 mg/dl 8.6-10.4 PROTEIN, TOTAL (test code = PROTEIN, TOTAL) 5.6 g/dl 6.1-8.1 ALBUMIN (test code = ALBUMIN) 3.4 g/dl 3.6-5.1 GLOBULIN (test code = GLOBULIN) 2.2 {G/DL CALC} 1.9-3.7 N ALBUMIN/GLOBULIN RATIO (test code = ALBUMIN/GLOBULIN RATIO) 1.5 {CALC} 1.0-2.5 N BILIRUBIN, TOTAL; Normal (test code = 88890-2) 0.4 mg/dl 0.2-1.2 N ALKALINE PHOSPHATASE (test code = ALKALINE PHOSPHATASE) 45 u/l 37-153 N AST; Normal (test code = 1916-6) 13 u/l 10-35 N ALT; Normal (test code = 1742-6) 7 u/l 6-29 [facility] ( min.3 views) [id number] 14:27:00EXAM: Wrist complete DXHISTORY: - M25.531 Pain in right wrist; M15.9 Polyosteoarthritis,unspecified;M15.4 Erosive (osteo)arthritis; Z79.52 group home (current) useof systemic steroidsCOMPARISON: None3 views of the right wristFINDINGS:There is advanced joint space narrowing at the thumb carpometacarpal andtriscaphe joints. No fracture or dislocation is seen.IMPRESSION: Advanced degenerative change.--Read by: Camryn Berry MDDictated Date/time: 12/15/19 15:08Electronically Signed by: Camryn Berry MD 12/14/2014:10FINAL REPORTAc[facility][QL] CMP [id number] 14:52:00* Test Item Value Reference Range Interpretation Comments GLUCOSE; Normal (test code = 1547-9) 120 mg/dl 65-139 N Non-fasting reference interval UREA NITROGEN (BUN) (test code = UREA NITROGEN (BUN)) 14 mg/dl 7-25 N CREATININE (test code = CREATININE) 1.05 mg/dl 0.60-0.93 For patients >49 years of age, the reference limitfor Creatinine is approximately 13% higher for peopleidentified as -Sudanese. eGFR NON-AFR. SINGAPOREAN (test code = eGFR NON-AFR. SINGAPOREAN) 52 {ML/MIN/1.7} > OR = 60 eGFR (test code = eGFR ) 61 {ML/MIN/1.7} > OR = 60 N BUN/CREATININE RATIO (test code = BUN/CREATININE RATIO) 13 {CALC} 6-22 N SODIUM (test code = SODIUM) 143 mmol/L 135-146 N POTASSIUM (test code = POTASSIUM) 3.1 mmol/L 3.5-5.3 CHLORIDE (test code = CHLORIDE) 103 mmol/L 98-110 N CARBON DIOXIDE (test code = CARBON DIOXIDE) 31 mmol/L 20-32 N CALCIUM (test code = CALCIUM) 9.6 mg/dl 8.6-10.4 N PROTEIN, TOTAL (test code = PROTEIN, TOTAL) 5.9 g/dl 6.1-8.1 ALBUMIN (test code = ALBUMIN) 3.6 g/dl 3.6-5.1 N GLOBULIN (test code = GLOBULIN) 2.3 {G/DL CALC} 1.9-3.7 N ALBUMIN/GLOBULIN RATIO (test code = ALBUMIN/GLOBULIN RATIO) 1.6 {CALC} 1.0-2.5 N BILIRUBIN, TOTAL; Normal (test code = 91386-7) 0.3 mg/dl 0.2-1.2 N ALKALINE PHOSPHATASE (test code = ALKALINE PHOSPHATASE) 46 u/l 37-153 N AST; Normal (test code = 1916-6) 15 u/l 10-35 N ALT; Normal (test code = 1742-6) 9 u/l 6-29 N [facility][QL] CBC (INCLUDES DIFF/PLT)2019-12-11 14:52:00* Test Item Value Reference Range Interpretation Comments WHITE BLOOD CELL COUNT (test code = WHITE BLOOD CELL COUNT) 5.1 {Thousand/u} 3.8-10.8 N RED BLOOD CELL COUNT (test code = RED BLOOD CELL COUNT) 3.65 {Million/uL} 3.80-5.10 HEMOGLOBIN; Normal (test code = 32113-4) 12.0 g/dl 11.7-15.5 N HEMATOCRIT; Normal (test code = 4544-3) 35.1 % 35.0-45.0 N MCV; Normal (test code = 787-2) 96.2 fL 80.0-100.0 N MCHC; Normal (test code = 35136-5) 34.2 g/dl 32.0-36.0 N RDW; Normal (test code = 788-0) 13.3 % 11.0-15.0 N PLATELET COUNT; Normal (test code = 777-3) 277 {Thousand/u} 140-400 N MPV; Normal (test code = 99703-8) 9.8 fL 7.5-12.5 N ABSOLUTE NEUTROPHILS (test code = ABSOLUTE NEUTROPHILS) 2392 {cells/uL} 7008-0480 N ABSOLUTE LYMPHOCYTES (test code = ABSOLUTE LYMPHOCYTES) 2254 {cells/uL} 850-3900 N ABSOLUTE MONOCYTES (test code = ABSOLUTE MONOCYTES) 383 {cells/uL} 200-950 N ABSOLUTE EOSINOPHILS (test code = ABSOLUTE EOSINOPHILS) 51 {cells/u L} 15-500 N ABSOLUTE BASOPHILS (test code = ABSOLUTE BASOPHILS) 20 {cells/uL} 0 -200 N NEUTROPHILS (test code = NEUTROPHILS) 46.9 % N LYMPHOCYTES (test code = LYMPHOCYTES) 44.2 % N MONOCYTES; Normal (test code = 57965-5) 7.5 % N EOSINOPHILS; Normal (test code = 07423-4) 1.0 % N BASOPHILS; Normal (test code = 22182-6) 0.4 % N [facility][Q] LIPID PANEL WITH REFLEX TO DIRECT LDL 2019-09-21 11:50:00* Test Item Value Reference Range Interpretation Comments CHOLESTEROL, TOTAL; Normal (test code = 2093-3) 149 mg/dl <200 N HDL CHOLESTEROL; Normal (test code = 2085-9) 58 mg/dl > OR = 50 N TRIGLYCERIDES; Above High Threshold (test code = 2571-8) 196 mg/dl <150 LDL-CHOLESTEROL; Normal (test code = 80493-3) 64 {MG/DL EDITH} N Reference range: <100 Desirable range <100 mg/dL for primary prevention; <70 mg/dL for patients with CHD or diabetic patients with > or = 2 CHD risk factors. LDL-C is now calculated using the Rodney-Kusum calculation, which is a validated novel method providing better accuracy than the Friedewald equation in the estimation of LDL-C. Rodney SS et al. ANKUR. 2013;310(19): 2420-7500 (http ://education.basico.com.[employer]/faq/QHV291) CHOL/HDLC RATIO (test code = CHOL/HDLC RATIO) 2.6 {CALC} <5.0 N NON HDL CHOLESTEROL (test code = NON HDL CHOLESTEROL) 91 {MG/DL CA L} <130 N For patients with diabetes plus 1 major ASCVD risk factor, treating to a non-HDL-C goal of <100 mg/dL (LDL-C of <70 mg/dL) is considered a therapeutic option. [facility][QL] URIC [id number] 11:50:00* Test Item Value Reference Range Interpretation Comments URIC ACID; Normal (test code = 3086-6) 4.5 mg/dl 2.5-7.0 N Therapeutic target for gout patients: <6.0 mg/dL [facility][QL] CMP [id number] 11:50:00* Test Item Value Reference Range Interpretation Comments GLUCOSE; Normal (test code = 1547-9) 93 mg/dl 65-99 N Fasting reference interval UREA NITROGEN (BUN) (test code = UREA NITROGEN (BUN)) 15 mg/dl 7-25 N CREATININE (test code = CREATININE) 0.93 mg/dl 0.60-0.93 N For patients >49 years of age, the reference limitfor Creatinine is approximately 13% higher for peopleidentified as -Sudanese. eGFR NON- (test code = eGFR NON-IAN N SINGAPOREAN) 61 {ML/MIN/1.7} > OR = 60 N eGFR (test code = eGFR ) 71 {ML/MIN/1.7} > OR = 60 N BUN/CREATININE RATIO (test code = BUN/CREATININE RATIO) NOT APPLICA BLE 6-22 SODIUM (test code = SODIUM) 141 mmol/L 135-146 N POTASSIUM (test code = POTASSIUM) 3.2 mmol/L 3.5-5.3 CHLORIDE (test code = CHLORIDE) 100 mmol/L 98-110 N CARBON DIOXIDE (test code = CARBON DIOXIDE) 32 mmol/L 20-32 N CALCIUM (test code = CALCIUM) 9.9 mg/dl 8.6-10.4 N PROTEIN, TOTAL (test code = PROTEIN, TOTAL) 5.8 g/dl 6.1-8.1 ALBUMIN (test code = ALBUMIN) 3.4 g/dl 3.6-5.1 GLOBULIN (test code = GLOBULIN) 2.4 {G/DL CALC} 1.9-3.7 N ALBUMIN/GLOBULIN RATIO (test code = ALBUMIN/GLOBULIN RATIO) 1.4 {CALC} 1.0-2.5 N BILIRUBIN, TOTAL; Normal (test code = 06318-2) 0.3 mg/dl 0.2-1.2 N ALKALINE PHSPHATASE (test code = ALKALINE PHSPHATASE) 54 u/l 37-153 N AST; Normal (test code = 1916-6) 14 u/l 10-35 N ALT; Normal (test code = 1742-6) 9 u/l 6-29 N [facility][QL] T3, [id number] 11:50:00* Test Item Value Reference Range Interpretation Comments T3, TOTAL (test code = T3, TOTAL) 105 ng/dl 76-181 N [facility][QL] T4, [id number] 11:50:00* Test Item Value Reference Range Interpretation Comments T4, FREE (test code = T4, FREE) 1.1 ng/dl 0.8-1.8 N [facility][] TSH, 3RD [id number] 11:50:00* Test Item Value Reference Range Interpretation Comments TSH; Normal (test code = 42800-5) 3.96 {MIU/L} 0.40-4.50 N [facility]] URIC [id number] 15:01:00* Test Item Value Reference Range Interpretation Comments URIC ACID; Normal (test code = 3086-6) 4.9 mg/dl 2.5-7.0 N Therapeutic target for gout patients: <6.0 mg/dL [facility]] CBC (INCLUDES DIFF/PLT)2019-06-12 15:01:00* Test Item Value Reference Range Interpretation Comments WHITE BLOOD CELL COUNT (test code = WHITE BLOOD CELL COUNT) 5.5 {Thousand/u} 3.8-10.8 N RED BLOOD CELL COUNT (test code = RED BLOOD CELL COUNT) 3.78 {Million/uL} 3.80-5.10 HEMAGLOBIN; Normal (test code = 07859-8) 12.3 g/dl 11.7-15.5 N HEMATOCRIT; Normal (test code = 4544-3) 35.5 % 35.0-45.0 N MCV; Normal (test code = 787-2) 93.9 fL 80.0-100.0 N MCHC; Normal (test code = 32489-5) 34.6 g/dl 32.0-36.0 N RDW; Normal (test code = 788-0) 13.5 % 11.0-15.0 N PLATELET COUNT; Normal (test code = 777-3) 264 {Thousand/u} 140-400 N MPV; Normal (test code = 66259-6) 9.5 fL 7.5-12.5 N ABSOLUTE NEUTROPHILS (test code = ABSOLUTE NEUTROPHILS) 2844 {cells/uL} 2377-5864 N ABSOLUTE LYMPHOCYTES (test code = ABSOLUTE LYMPHOCYTES) 2195 {cells/uL} 850-3900 N ABSOLUTE MONOCYTES (test code = ABSOLUTE MONOCYTES) 380 {cells/uL} 200-950 N ABSOLUTE EOSINOPHILS (test code = ABSOLUTE EOSINOPHILS) 61 {cells/u L} 15-500 N ABSOLUTE BASOPHILS (test code = ABSOLUTE BASOPHILS) 22 {cells/uL} 0 -200 N NEUTROPHILS (test code = NEUTROPHILS) 51.7 % N LYMPHOCYTES (test code = LYMPHOCYTES) 39.9 % N MONOCYTES; Normal (test code = 94258-1) 6.9 % N EOSINOPHILS; Normal (test code = 38816-0) 1.1 % N BASOPHILS; Normal (test code = 86267-2) 0.4 % N [facility] Digital Mammo Screening Alfie [id number] 14:58:00BILATERAL DIGITAL SCREENING MAMMOGRAM WITH CAD: 04/18/2019CLINICAL: Encounter For Screening Mammogram For Malignant Neoplasm OfBreast/Z12.31. Current study was evaluated with a Computer Aided Detection (CAD) system. COMPARISON:No prior exams were available for comparison. TECHNIQUE: Mammographic views were obtained using digital acquisition. Currentstudy was also evaluated with a Computer Aided Detection (CAD) system.FINDINGS:There are scattered fibroglandular densities in both breasts. No significant masses, calcifications, or other findings are seen in eitherbreast. IMPRESSION: NEGATIVERECOMMENDATION:There is no mammographic evidence of malignancy. A 1 yearscreening mammogram is recommended.(04/18/2020) This exam was interpreted [id number] at [facility]. Professional services are provided by [facility].Tami camilo/macie:05/03/2019 11:00:35 Gear Lapper(s): RT Tracee(Michaela)(M), [facility] sent: BI-RADS 1/2 Mammogram BI-RADS: 1 Negative--Read by: Tami Monge MDDictated Date/time: 05/03/19 11:00Electronically Signed by: Tami Moneg MD 05/03/1911:00FINAL REPORTUnUniversity of [facility][] LIPID PANEL WITH REFLEX TO DIRECT [id number] 12:38:00* Test Item Value Reference Range Interpretation Comments CHOLESTEROL, TOTAL; Normal (test code = 2093-3) 131 mg/dl <200 N HDL CHOLESTEROL; Below Low Threshold (test code = 2085-9) 48 mg/dl >50 TRIGLYCERIDES; Above High Threshold (test code = 2571-8) 209 mg/dl <150 If a non-fasting specimen was collected, considerrepeat triglyceride testing on a fasting specimenif clinically indicated. Theresa et al. J. of Clin. Lipidol. 2015;9:129-169. LDL-CHOLESTEROL; Normal (test code = 23674-4) 56 {MG/DL EDITH} N Reference range: <100 Desirable range <100 mg/dL for primary prevention; <70 mg/dL for patients with CHD or diabetic patients with > or = 2 CHD risk factors. LDL-C is now calculated using the Rodney-Noe calculation, which is a validated novel method providing better accuracy than the Friedewald equation in the estimation of LDL-C. Rodney SS et al. ANKUR. 2013;310(19): 8745-8489 (http ://Group-IB.Sqwiggle/faq/UHJ204) CHOL/HDLC RATIO (test code = CHOL/HDLC RATIO) 2.7 {CALC} <5.0 N NON HDL CHOLESTEROL (test code = NON HDL CHOLESTEROL) 83 {MG/DL CA L} <130 N For patients with diabetes plus 1 major ASCVD risk factor, treating to a non-HDL-C goal of <100 mg/dL (LDL-C of <70 mg/dL) is considered a therapeutic option. [facility]] CMP [id number] 12:38:00* Test Item Value Reference Range Interpretation Comments GLUCOSE; Normal (test code = 1547-9) 94 mg/dl 65-99 N Fasting reference interval UREA NITROGEN (BUN) (test code = UREA NITROGEN (BUN)) 19 mg/dl 7-25 N CREATININE (test code = CREATININE) 1.10 mg/dl 0.60-0.93 For patients >49 years of age, the reference limitfor Creatinine is approximately 13% higher for peopleidentified as -Sudanese. eGFR NON- (test code = eGFR NON-IAN N SINGAPOREAN) 50 {ML/MIN/1.7} > OR = 60 eGFR (test code = eGFR ) 58 {ML/MIN/1.7} > OR = 60 BUN/CREATININE RATIO (test code = BUN/CREATININE RATIO) 17 {CALC} 6-22 N SODIUM (test code = SODIUM) 140 mmol/L 135-146 N POTASSIUM (test code = POTASSIUM) 3.5 mmol/L 3.5-5.3 N CHLORIDE (test code = CHLORIDE) 103 mmol/L 98-110 N CARBON DIOXIDE (test code = CARBON DIOXIDE) 30 mmol/L 20-32 N CALCIUM (test code = CALCIUM) 9.2 mg/dl 8.6-10.4 N PROTEIN, TOTAL (test code = PROTEIN, TOTAL) 5.7 g/dl 6.1-8.1 ALBUMIN (test code = ALBUMIN) 3.5 g/dl 3.6-5.1 GLOBULIN (test code = GLOBULIN) 2.2 {G/DL CALC} 1.9-3.7 N ALBUMIN/GLOBULIN RATIO (test code = ALBUMIN/GLOBULIN RATIO) 1.6 {CALC} 1.0-2.5 N BILIRUBIN, TOTAL; Normal (test code = 94987-1) 0.3 mg/dl 0.2-1.2 N ALKALINE PHSPHATASE (test code = ALKALINE PHSPHATASE) 63 u/l 33-130 N AST; Normal (test code = 1916-6) 13 u/l 10-35 N ALT; Normal (test code = 1742-6) 7 u/l 6-29 N [facility]] T3, [id number] 12:38:00* Test Item Value Reference Range Interpretation Comments T3, TOTAL (test code = T3, TOTAL) 99 ng/dl 76-181 N [facility]] T4, [id number] 12:38:00* Test Item Value Reference Range Interpretation Comments T4, FREE (test code = T4, FREE) 1.0 ng/dl 0.8-1.8 N [facility]] TSH, 3RD [id number] 12:38:00* Test Item Value Reference Range Interpretation Comments TSH; Above High Threshold (test code = 54574-4) 10.05 {MIU/L} 0.40- 4.50 [facility] Hand AP lateral Bilateral [id number] 15:47:00EXAM: XR BILATERAL HAND 3 VIEWSDATE: 09/29/2018 15:47 CDTINDICATION: generalized osteoarthritis of multiple sitesCOMPARISON: 10/19/2014.TECHNIQUE: PA, lateral and oblique radiographs of the bilateral hands.FINDINGS: No acute fracture or malalignment is identified. Erosiveosteoarthritis of the hands is again identified, with central erosive changemost evident at the index finger DIP joint and left ring finger PIP joint.Bulky osteophyte formation is present at all interphalangeal joints, and at thecarpometacarpal joint of the thumb bilaterally, right greater than left.Narrowing of the triscaphe articulation is also present bilaterally. Osteophyteformation has progressed in the interim, particularly at the PIP jointsbilaterally.IMPRESSION: Erosive osteoarthritis of the bilateral hands, with progression ofsecondary osteophyte formation most evident at the PIP joints.--This report was dictated by a Salvage Supervisor/Fellow/Physician Sdc Teacher. Ihave personallyreviewed the images as well as the interpretation and agree with the findings.Read by: Rowdy Velazquez MD Resident/Fellow/PhysicianAssistant: Rowdy Velazquez MDDictated Date/time: 09/29/18 16:05Electronically Signed by: Kristin Marinelli MD 09/30/1919:47FINAL REPORTUnUniversity of [facility] PhysiciansXRAY Knee AP and lateral [id number] 15:46:00EXAM: XR RIGHT KNEE 2 VIEWSDATE: 09/29/2018 15:46 CDTINDICATION: - arthralgia of right kneeCOMPARISON: Right knee x-ray dated 10/19/2014TECHNIQUE: Standing AP and lateral radiographs of the kneeFINDINGS: No acute fracture or malalignment is identified. Smalltricompartmental osteophytes are present, with borderline narrowing of thelateral compartment.No knee joint effusion is present. No soft tissue abnormality is identified.IMPRESSION: Mild osteoarthrosis of the right knee, with small osteophytes moreevident compared to 2014.--This report was dictated b y a Salvage Supervisor/Fellow/Physician Sdc Teacher. Ihave personallyreviewed the images as well as the interpretation and agree with the findings.Read by: Rowdy Trinidad MD Resident/Fellow/PhysicianAssistant: Ramon Velazquez MDDictated Date/time: 09/29/18 16:03Electronically Signed by: Kristin Harden MD 09/30/1919:53FINAL REPORTUnUniversity of [facility] Hospital [facility][] LIPID PANEL WITH REFLEX TO DIRECT [id number] 13:56:00* Test Item Value Reference Range Interpretation Comments CHOLESTEROL, TOTAL; Normal (test code = 2093-3) 164 mg/dl <200 N HDL CHOLESTEROL; Below Low Threshold (test code = 2085-9) 44 mg/dl >50 TRIGLYCERIDES; Above High Threshold (test code = 2571-8) 171 mg/dl <150 LDL-CHOLESTEROL; Normal (test code = 55515-8) 93 {MG/DL EDITH} N Reference range: <100 Desirable range <100 mg/dL for primary prevention; <70 mg/dL for patients with CHD or diabetic patients with > or = 2 CHD risk factors. LDL-C is now calculated using the Staci calculation, which is a validated novel method providing better accuracy than the Friedewald equation in the estimation of LDL-C. Rodney SS et al. ANKUR. 2013;310(19): 3032-0426 (http ://education.basico.com.[employer]/faq/CEB709) CHOL/HDLC RATIO (test code = CHOL/HDLC RATIO) 3.7 {CALC} <5.0 N NON HDL CHOLESTEROL (test code = NON HDL CHOLESTEROL) 120 {MG/DL C AL} <130 N For patients with diabetes plus 1 major ASCVD risk factor, treating to a non-HDL-C goal of <100 mg/dL (LDL-C of <70 mg/dL) is considered a therapeutic option. [facility]] CMP [id number] 13:56:00* Test Item Value Reference Range Interpretation Comments GLUCOSE; Normal (test code = 1547-9) 93 mg/dl 65-99 N Fasting reference interval UREA NITROGEN (BUN) (test code = UREA NITROGEN (BUN)) 19 mg/dl 7-25 N CREATININE (test code = CREATININE) 0.99 mg/dl 0.60-0.93 For patients >49 years of age, the reference limitfor Creatinine is approximately 13% higher for peopleidentified as -Sudanese. eGFR NON- (test code = eGFR NON-IAN N SINGAPOREAN) 57 {ML/MIN/1.7} > OR = 60 eGFR (test code = eGFR ) 66 {ML/MIN/1.7} > OR = 60 N BUN/CREATININE RATIO (test code = BUN/CREATININE RATIO) 19 {CALC} 6-22 N SODIUM (test code = SODIUM) 142 mmol/L 135-146 N POTASSIUM (test code = POTASSIUM) 3.9 mmol/L 3.5-5.3 N CHLORIDE (test code = CHLORIDE) 102 mmol/L 98-110 N CARBON DIOXIDE (test code = CARBON DIOXIDE) 33 mmol/L 20-32 CALCIUM (test code = CALCIUM) 9.2 mg/dl 8.6-10.4 N PROTEIN, TOTAL (test code = PROTEIN, TOTAL) 5.9 g/dl 6.1-8.1 ALBUMIN (test code = ALBUMIN) 3.6 g/dl 3.6-5.1 N GLOBULIN (test code = GLOBULIN) 2.3 {G/DL CALC} 1.9-3.7 N ALBUMIN/GLOBULIN RATIO (test code = ALBUMIN/GLOBULIN RATIO) 1.6 {CALC} 1.0-2.5 N BILIRUBIN, TOTAL; Normal (test code = 75613-2) 0.3 mg/dl 0.2-1.2 N ALKALINE PHSPHATASE (test code = ALKALINE PHSPHATASE) 67 u/l 33-130 N AST; Normal (test code = 1916-6) 13 u/l 10-35 N ALT; Normal (test code = 1742-6) 9 u/l 6-29 N [facility]] T3, [id number] 13:56:00* Test Item Value Reference Range Interpretation Comments T3, TOTAL (test code = T3, TOTAL) 94 ng/dl 76-181 N [facility]] T4, [id number] 13:56:00* Test Item Value Reference Range Interpretation Comments T4, FREE (test code = T4, FREE) 1.4 ng/dl 0.8-1.8 N [facility]] TSH, 3RD [id number] 13:56:00* Test Item Value Reference Range Interpretation Comments TSH; Normal (test code = 21192-6) 2.80 {MIU/L} 0.40-4.50 N [facility] with [facility] guidance [id number] 15:15:00Patient Name: ANNETTE CARTER : 6Age: 72 years, Female MR: [id number]: Biopsy with ultrasound guidance VR 06/27/2018 15:15 CSTProcedure: Ultrasound guided neck mass biopsy.Indication: Right neck mass.Clinical information: Right neck massComparison: CT neck 06/13/2018Pain control: Subcutaneous 1% lidocaine for local anesthesia.Sedation: Patient's vital signs were monitored continuously throughout theprocedure by a dedicated nurse.Estimated blood loss: NoneImplants/grafts: NoneBlood products administered: NoneSpecimens: Fine-needle aspiration biopsy x 4 in formalin and RPMI. Thespecimens were given to pathology. Complications: None immediateCondition at procedure completion: Stable.Disposition: PACUTechnique:The patient was placed supine. Focused sonographic evaluation of the neck wasperformed. Focal hypoechoic structure with increased vascularity was noted inthe subcutaneous tissues. A safe approach was determined. The skin was preppedand draped in the usual sterile fashion. 1% lidocaine was infused into thesubcutaneous tissues for local anesthesia.Utilizing direct sonographic guidance, fine-needle aspiration biopsy sampleswere obtained with 25-gauge nee dles. Fine-needle aspiration biopsy samples x 4of the neck mass were obtained. P carlos position of the needle tip within thelesion was confirmed with ultrasound imaging. The specimens were given to thetechnologist and slides were created.Foc used sonographic evaluation demonstrated no hematoma. A sterile dressing wasappl ied.The patient tolerated the procedure well. There are no immediate complicatio ns.The patient was transferred to the postprocedure area in stable unchangedcond ition for further monitoring.Impression:Successful ultrasound-guided neck mass f ine-needle aspiration biopsy.Specimens were sent to pathology for further evalua tion.--Read by: Rowdy Hugo MDDictated Date/time: 06/27/18 16:05Electronica lly Signed by: Rowdy Hugo MD 06/27/1916:09FINAL REP ORTUn[facility][] LIPID PANEL WITH REFLEX TO DIRECT LDL 2018-03-10 12:19:00* Test Item Value Reference Range Interpretation Comments CHOLESTEROL, TOTAL; Normal (test code = 2093-3) 159 mg/dl <200 N HDL CHOLESTEROL; Normal (test code = 2085-9) 55 mg/dl >50 N TRIGLYCERIDES; Above High Threshold (test code = 2571-8) 173 mg/dl <150 LDL-CHOLESTEROL; Normal (test code = 09938-7) 77 {MG/DL EDITH} N Reference range: <100 Desirable range <100 mg/dL for primary prevention; <70 mg/dL for patients with CHD or diabetic patients with > or = 2 CHD risk factors. LDL-C is now calculated using the Rodney-Noe calculation, which is a validated novel method providing better accuracy than the Friedewald equation in the estimation of LDL-C. Rodney YAÑEZ et al. ANKUR. 2013;310(19): 0409-1622 (http ://education.basico.com.[employer]/faq/RHX923) CHOL/HDLC RATIO (test code = CHOL/HDLC RATIO) 2.9 {CALC} <5.0 N NON HDL CHOLESTEROL (test code = NON HDL CHOLESTEROL) 104 {MG/DL C AL} <130 N For patients with diabetes plus 1 major ASCVD risk factor, treating to a non-HDL-C goal of <100 mg/dL (LDL-C of <70 mg/dL) is considered a therapeutic option. [facility]] CMP [id number] 12:19:00* Test Item Value Reference Range Interpretation Comments GLUCOSE; Normal (test code = 1547-9) 90 mg/dl 65-99 N Fasting reference interval UREA NITROGEN (BUN) (test code = UREA NITROGEN (BUN)) 14 mg/dl 7-25 N CREATININE (test code = CREATININE) 0.90 mg/dl 0.60-0.93 N For patients >49 years of age, the reference limitfor Creatinine is approximately 13% higher for peopleidentified as -Sudanese. eGFR NON- (test code = eGFR NON-IAN N SINGAPOREAN) 64 {ML/MIN/1.7} > OR = 60 N eGFR (test code = eGFR ) 74 {ML/MIN/1.7} > OR = 60 N BUN/CREATININE RATIO (test code = BUN/CREATININE RATIO) NOT APPLICA BLE 6-22 SODIUM (test code = SODIUM) 141 mmol/L 135-146 N POTASSIUM (test code = POTASSIUM) 3.4 mmol/L 3.5-5.3 CHLORIDE (test code = CHLORIDE) 100 mmol/L 98-110 N CARBON DIOXIDE (test code = CARBON DIOXIDE) 32 mmol/L 20-32 N CALCIUM (test code = CALCIUM) 9.6 mg/dl 8.6-10.4 N PROTEIN, TOTAL (test code = PROTEIN, TOTAL) 6.1 g/dl 6.1-8.1 N ALBUMIN (test code = ALBUMIN) 3.8 g/dl 3.6-5.1 N GLOBULIN (test code = GLOBULIN) 2.3 {G/DL CALC} 1.9-3.7 N ALBUMIN/GLOBULIN RATIO (test code = ALBUMIN/GLOBULIN RATIO) 1.7 {CALC} 1.0-2.5 N BILIRUBIN, TOTAL; Normal (test code = 65219-6) 0.4 mg/dl 0.2-1.2 N ALKALINE PHSPHATASE (test code = ALKALINE PHSPHATASE) 53 u/l 33-130 N AST; Normal (test code = 1916-6) 13 u/l 10-35 N ALT; Normal (test code = 1742-6) 8 u/l 6-29 N [facility]] T3, [id number] 12:19:00* Test Item Value Reference Range Interpretation Comments T3, TOTAL (test code = T3, TOTAL) 100 ng/dl 76-181 N [facility]] T4, [id number] 12:19:00* Test Item Value Reference Range Interpretation Comments T4, FREE (test code = T4, FREE) 1.4 ng/dl 0.8-1.8 N [facility]] TSH, 3RD [id number] 12:19:00* Test Item Value Reference Range Interpretation Comments TSH; Normal (test code = 29339-1) 1.37 {MIU/L} 0.40-4.50 N [facility][] LIPID PANEL WITH REFLEX TO DIRECT LDL 2017-09-01 12:20:00* Test Item Value Reference Range Interpretation Comments CHOLESTEROL, TOTAL; Normal (test code = 2093-3) 159 mg/dl <200 N HDL CHOLESTEROL; Below Low Threshold (test code = 2085-9) 45 mg/dl >50 TRIGLYCERIDES; Above High Threshold (test code = 2571-8) 265 mg/dl <150 LDL-CHOLESTEROL; Normal (test code = 89463-6) 79 {MG/DL EDITH} N Reference range: <100 Desirable range <100 mg/dL for primary prevention; <70 mg/dL for patients with CHD or diabetic patients with > or = 2 CHD risk factors. LDL-C is now calculated using the Staci calculation, which is a validated novel method providing better accuracy than the Friedewald equation in the estimation of LDL-C. Rodney SS et al. ANKUR. 2013;310(19): 5444-6327 (http ://education.S[employer]gle/faq/UGR510) CHOL/HDLC RATIO (test code = CHOL/HDLC RATIO) 3.5 {CALC} <5.0 N NON HDL CHOLESTEROL (test code = NON HDL CHOLESTEROL) 114 {MG/DL C AL} <130 N For patients with diabetes plus 1 major ASCVD risk factor, treating to a non-HDL-C goal of <100 mg/dL (LDL-C of <70 mg/dL) is considered a therapeutic option. [facility]] CMP [id number] 12:20:00* Test Item Value Reference Range Interpretation Comments GLUCOSE; Above High Threshold (test code = 1547-9) 109 mg/dl 65- 99 Fasting reference interval For someone without known diabetes, a glucose valuebetween 100 and 125 mg/dL is consistent withprediabetes and should be confirmed with afollow-up test. UREA NITROGEN (BUN) (test code = UREA NITROGEN (BUN)) 13 mg/dl 7-25 N CREATININE (test code = CREATININE) 0.94 mg/dl 0.60-0.93 For patients >49 years of age, the reference limitfor Creatinine is approximately 13% higher for peopleidentified as -Sudanese. eGFR NON- (test code = eGFR NON-IAN N SINGAPOREAN) 61 {ML/MIN/1.7} > OR = 60 N eGFR (test code = eGFR ) 71 {ML/MIN/1.7} > OR = 60 N BUN/CREATININE RATIO (test code = BUN/CREATININE RATIO) 14 {CALC} 6-22 N SODIUM (test code = SODIUM) 137 mmol/L 135-146 N POTASSIUM (test code = POTASSIUM) 3.7 mmol/L 3.5-5.3 N CHLORIDE (test code = CHLORIDE) 100 mmol/L 98-110 N CARBON DIOXIDE (test code = CARBON DIOXIDE) 31 mmol/L 20-31 N CALCIUM (test code = CALCIUM) 9.7 mg/dl 8.6-10.4 N PROTEIN, TOTAL (test code = PROTEIN, TOTAL) 6.3 g/dl 6.1-8.1 N ALBUMIN (test code = ALBUMIN) 3.9 g/dl 3.6-5.1 N GLOBULIN (test code = GLOBULIN) 2.4 {G/DL CALC} 1.9-3.7 N ALBUMIN/GLOBULIN RATIO (test code = ALBUMIN/GLOBULIN RATIO) 1.6 {CALC} 1.0-2.5 N BILIRUBIN, TOTAL; Normal (test code = 66898-6) 0.5 mg/dl 0.2-1.2 N ALKALINE PHSPHATASE (test code = ALKALINE PHSPHATASE) 65 u/l 33-130 N AST; Normal (test code = 1916-6) 17 u/l 10-35 N ALT; Normal (test code = 1742-6) 10 u/l 6-29 N [facility]] CBC (INCLUDES DIFF/PLT)2017-09-01 12:20:00* Test Item Value Reference Range Interpretation Comments WHITE BLOOD CELL COUNT (test code = WHITE BLOOD CELL COUNT) 5.0 {Thousand/u} 3.8-10.8 N RED BLOOD CELL COUNT (test code = RED BLOOD CELL COUNT) 3.96 {Million/uL} 3.80-5.10 N HEMOGLOBIN; Normal (test code = 40704-2) 12.2 g/dl 11.7-15.5 N HEMATOCRIT; Normal (test code = 4544-3) 36.4 % 35.0-45.0 N MCV; Normal (test code = 787-2) 91.9 fL 80.0-100.0 N MCHC; Normal (test code = 07926-8) 33.5 g/dl 32.0-36.0 N RDW; Normal (test code = 788-0) 13.7 % 11.0-15.0 N PLATELET COUNT; Normal (test code = 777-3) 266 {Thousand/u} 140-400 N MPV; Normal (test code = 65851-5) 9.7 fL 7.5-12.5 N ABSOLUTE NEUTROPHILS (test code = ABSOLUTE NEUTROPHILS) 2770 {cells/uL} 6497-8992 N ABSOLUTE LYMPHOCYTES (test code = ABSOLUTE LYMPHOCYTES) 1805 {cells/uL} 850-3900 N ABSOLUTE MONOCYTES (test code = ABSOLUTE MONOCYTES) 365 {cells/uL} 200-950 N ABSOLUTE EOSINOPHILS (test code = ABSOLUTE EOSINOPHILS) 50 {cells/u L} 15-500 N ABSOLUTE BASOPHILS (test code = ABSOLUTE BASOPHILS) 10 {cells/uL} 0 -200 N NEUTROPHILS (test code = NEUTROPHILS) 55.4 % N LYMPHOCYTES (test code = LYMPHOCYTES) 36.1 % N MONOCYTES; Normal (test code = 56316-4) 7.3 % N EOSINOPHILS; Normal (test code = 24068-7) 1.0 % N BASOPHILS; Normal (test code = 53748-2) 0.2 % N [facility]] TSH, 3RD [id number] 12:20:00* Test Item Value Reference Range Interpretation Comments TSH; Normal (test code = 89227-7) 2.08 {MIU/L} 0.40-4.50 N [facility] 2 views [id number] 16:16:00* Test Item Value Reference Range Interpretation Comments Chest 2 views (test code = Chest 2 views) Cancel Reason: [facility]ident [facility] bilateral w pelvis and both lat hips [id number] 15:30:00EXAM: XR BILATERAL HIP 2 VIEWSDATE: 08/19/2017 at 1501 hoursINDICATION: M25.552 Pain in left hipCOMPARISON: Acute abdominal series of 01/13/2017.TECHNIQUE: 2 views of each hip, including the pelvisFINDINGS: No acute fracture or malalignment is identified. Hip jointspaces are preserved bilaterally, with small osteophytes at the acetabularmargins. Sacroiliac joints and pubic symphysis are unremarkable.No soft tissue abnormality is identified.IMPRESSION: Small acetabular osteophytes without hip joint space narrowing.--Read by: Kristin Marinelli MDDictated Date/time: 08/19/17 16:11Electronically Signed by: Kristin Marinelli MD 08/20/1815:16FINAL REPORTUnUtah State Hospital
--- OUTSIDE RECORDS SUMMARY | 2020-01-17 12:19 | XMS REPORT | Summary of Care ---
Author Author ANNETTE Johns Organization Unknown Address Unknown Phone Unavailable Care Team Providers Care Superintendent Distribution Name Role Phone TOBIAS Denny, HUNTER Unavailable Unavailable CAESAR Hurtado, TIMMY Unavailable Unavailable Lionel Johns Unavailable Unavailable DHEERAJ ALLEN [place], BERTA BREEN Unavailable Unavailable CAESAR ALLEN [place], TIMMY Unavailable Unavailable NKECHI SHELDON [place], [place] Unavailable Unavailable DHEERAJ Hurtado, BERTA Jett Unavailable TOBIAS MCGINNIS, HUNTER Unavailable Unavailable Anurag Terrell MD Unavailable Unavailable BRANDI ALLEN, FELY Menon Unavailable Unavailable FILEMON WET MACHINE CUTTER-C, CHERYL SUAZO Unavailable Unavailable LUIS ALLEN [place], UZIEL Lane Unavailable Unavailable Unavailable Unavailable Functional [...] On prednisone therapy (V58.65, Z79.52) Status: Active Medications Name Dates Details cloNIDine [...] 2-3 WEEKS * Quantity: 1 Refills: 1 COLLADO P.A., HUNTER * Start : 01-Sep-2019 Active 45 GM [...] M25.532) Status: Resolved Procedures Procedure Dates Details XRAY Wrist complete ( min.3 views) [id number] Date: 11-Dec-2019 History of Wrist Surgery Completed History of Shoulder Surgery Completed History of Leg Repair Completed History of PTCA Completed Immunization Name Dates Details Influenza on: 15-Mar-2012 Fluzone INJ Lot #: [id number] on: 20-Feb-2013 Influenza on: 20-Feb-2015 Prevnar 13 Intramuscular Suspension Lot #: [id number] on: 22-Mar-2015 Fluzone Quadrivalent 0.5 ML Intramuscula r Suspension Prefilled Syringe Lot #: [id number] on: 28-Jan-2016 Fluzone Quadrivalent 0.5 ML Intramuscula r Suspension Prefilled Syringe Lot #: [id number] on: 28-Jan-2016 Fluzone Quadrivalent 0.5 ML Intramuscula r Suspension Prefilled Syringe Lot #: [id number] on: 15-Mar-2017 Pneumococcal polysaccharide vaccine, 23 valent Lot #: [id number] on: 15-Mar-2017 Fluzone High-Dose 0.5 ML Intramuscular S uspension Prefilled Syringe Lot #: [id number] on: 26-Jan-2018 Fluzone High-Dose 0.5 ML Intramuscular S uspension Prefilled Syringe Lot #: [id number] on: 01-Mar-2019 Family History Name Dates Details [...] pressure 115 mm[Hg] Status: Comments : Location: [facility]; Position: Sitting Diastolic blood pressure 72 mm[Hg] Status: Comment s: Location: [facility]; Position: Sitting Body height 61 in Status: Weight 166 lb Status: Body mass index (BMI) [Ratio] 31.37 kg/m2 Status: Body surface area Derived from formula 1.75 m2 S tatus: Body temperature 96.8 f Status: Heart Rate 78 /min Status: Respiratory rate 15 /min Status: :30 Systolic blood pressure 129 mm[Hg] Status: Comments : [place] [facility] [place] Position: Sitting Diastolic blood pressure 79 mm[Hg] Status: Comment s: [place] [facility] [place] Position: Sitting Body height 61 in Status: [...] is approximately 13% higher for peopleidentified as -Kazakh. eGFR NON-AFR. HAITIAN 52 {ML/MIN/1.7} (Below l ow threshold) Range: [...] ABSOLUTE NEUTROPHILS 2392 {cells/uL} (Normal) R eileen: 4684-5547 ABSOLUTE LYMPHOCYTES 2254 {cells/uL} (Normal) R eileen: [...] Appointment; MYAH BOWIE M.D. On: 01-Mar-2020 14:45 Instructions Name Dates Details Instructions not documented [...]
--- OUTSIDE RECORDS SUMMARY | 2020-01-17 12:19 | XMS REPORT | Summary of Care ---
Author ANNETTE López M.A. SON Organization Unknown Address [facility] Phone Unavailable Care Team Providers Care Employee Relations Assistant Name Role Phone TOBIAS Denny, HUNTER Unavailable Unavailable DHEERAJ ALLEN [place], BERTA BREEN Unavailable Unavailable CAESAR ALLEN CO, TIMMY Unavailable Unavailable NKECHI SHELDON [place], [place]ON Unavailable Unavailable DHEERAJ Hurtado, BERTA Unavailable Unavailable TOBIAS MCGINNIS, HUNTER Unavailable Unavailable Nidhi ALLEN, Anurag Unavailable Unavailable BRANDI ALLEN, FELY Menon Unavailable Unavailable FILEMON FEATHER CUTTING MACHINE FEEDER-C, CHERYL SUAZO Unavailable Unavailable LUIS ALLEN [place], UZIEL Lane Unavailable Unavailable Unavailable Unavailable Functional [...] Active 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, M19.049) Status: Active On prednisone therapy (V58.65, Z79.52) Status: Active 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, 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: Active Visit for screening mammogram (V76.12, Z 12.31) Status: Active BMI 33.0-33.9,adult (V85.33, Z68.33) Status: Active Encounter for monitoring allopurinol the rapy (V58.83, Z51.81) Status: Active Erosive osteoarthritis of both hands (71 5.89, M15.4) Status: Active Generalized osteoarthritis of multiple s ites (715.09, M15.9) Status: Active Arthralgia of right knee (719.46, M25.56 1) Status: Active Essential (primary) hypertension (401.9, I10) Status: Active Hypothyroidism (244.9, E03.9) Status: Active Gout (274.9, M10.9) Status: Active Candidal intertrigo (112.3, B37.2) Status: Active Atypical mole (216.9, D22.9) Status: Active Ear pressure (388.8, H93.8X9) Status: Active Decreased hearing (389.9, H91.90) Status: Active Medications Name Dates Details cloNIDine [...] Resolved Procedures Procedure Dates Details History of Wrist Surgery Completed History of Shoulder Surgery Completed History of Leg Repair Completed History of PTCA Completed Immunization Name Dates Details Influenza on: 15-Mar-2012 Fluzone INJ Lot #: [id number] on: 20-Feb-2013 Influenza on: 20-Feb-2015 Prevnar 13 Intramuscular Suspension Lot #: [id number] on: 22-Mar-2015 Fluzone Quadrivalent 0.5 ML Intramuscula r Suspension Prefilled Syringe Lot #: [id number] on: 28-Jan-2016 Fluzone Quadrivalent 0.5 ML Intramuscula r Suspension Prefilled Syringe Lot #: [id number] on: 28-Jan-2016 Fluzone Quadrivalent 0.5 ML Intramuscula r Suspension Prefilled Syringe Lot #: [id number] on: 15-Mar-2017 Pneumococcal polysaccharide vaccine, 23 valent Lot #: [id number] on: 15-Mar-2017 Fluzone High-Dose 0.5 ML Intramuscular S uspension Prefilled Syringe Lot #: [id number] on: 26-Jan-2018 Fluzone High-Dose 0.5 ML Intramuscular S uspension Prefilled Syringe Lot #: [id number] on: 01-Mar-2019 Family History Name Dates Details [...] (finding) Vital Signs Date Test Result Details [id number] Systolic blood pressure 129 mm[Hg] Status: Comments [...] Appointment; TIMMY MAYNARD M.D. On: 11-Dec-2019 14:00 Interventions Provided Medication Changes* Allopurinol 300 MG Oral Tablet - Renew * Amitriptyline HCl - 10 MG Oral Tablet - Renew * cloNIDine HCl - 0.1 MG Oral Tablet - Renew * Clotrimazole 1 % External Cream - Renew * Levothyroxine Sodium 75 MCG Oral Tablet - Renew * Metoprolol Succinate ER 100 MG Oral Tablet Extended Release 24 Hour - Renew * Triamterene-HCTZ 75-50 MG Oral Tablet - Renew Instructions Name Dates Details Instructions not documented [...] documented On: 21-Sep-2019 11:00 Appointment; HUNTER COLLADO PArben Encounter Diagnosis: Problem not documented On: 06-Dec-2019 14:30
--- OUTSIDE RECORDS SUMMARY | 2020-01-17 12:19 | XMS REPORT | Summary of Care ---
Author ANNETTE Hyde LVN Organization Unknown Address [facility] Phone Unavailable Care Team Providers Care Marketing Representative Name Role Phone TOBIAS Denny, HUNTER Unavailable Unavailable CAESAR Hurtado, TIMMY Unavailable Unavailable DHEERAJ ALLEN [place], BERTA BREEN Unavailable Unavailable CAESAR ALLEN [place], TIMMY Unavailable Unavailable NKECHI SHELDON [place], [place] Unavailable Unavailable DHEERAJ Hurtado, BERTA Jett Unavailable TOBIAS MCGINNIS, HUNTER Unavailable Unavailable Nidhi ALLEN, Anurag Unavailable Unavailable BRANDI ALLEN, FELY Menon Unavailable Unavailable FILEMON WRIGHT-C, CHERYL SUAOZ Unavailable Unavailable LUIS ALLEN [place], UZIEL Lane Unavailable Unavailable Unavailable Unavailable Functional [...] pain. * Quantity: 72 Refills: 0 TIMMY FRANCISCO M.D. * Start : 28-Sep-2018 Active Clotrimazole [...] Status: Resolved Procedures Procedure Dates Details [QL] CBC (INCLUDES DIFF/PLT) Date: 11-Dec-2019 [QL] CMP W/EGFR Date: 11-Dec-2019 XRAY Wrist complete ( min.3 views) 55985 Date: 11-Dec-2019 History of Wrist Surgery Completed History of Shoulder Surgery Completed History of Leg Repair Completed History of PTCA Completed Immunization Name Dates Details Influenza on: 15-Mar-2012 Fluzone INJ Lot #: [id number] on: 20-Feb-2013 Influenza on: 20-Feb-2015 Prevnar 13 Intramuscular Suspension Lot #: [id number] on: 22-Mar-2015 Fluzone Quadrivalent 0.5 ML Intramuscula r Suspension Prefilled Syringe Lot #: [id number] on: 28-Jan-2016 Fluzone Quadrivalent 0.5 ML Intramuscula r Suspension Prefilled Syringe Lot #: [id number] on: 28-Jan-2016 Fluzone Quadrivalent 0.5 ML Intramuscula r Suspension Prefilled Syringe Lot #: [id number] on: 15-Mar-2017 Pneumococcal polysaccharide vaccine, 23 valent Lot #: [id number] on: 15-Mar-2017 Fluzone High-Dose 0.5 ML Intramuscular S uspension Prefilled Syringe Lot #: [id number] on: 26-Jan-2018 Fluzone High-Dose 0.5 ML Intramuscular S uspension Prefilled Syringe Lot #: [id number] on: 01-Mar-2019 Family History Name Dates Details [...] pressure 115 mm[Hg] Status: Comments : Location: [facility]; Position: Sitting Diastolic blood pressure 72 mm[Hg] Status: Comment s: Location: [facility]; Position: Sitting Body height 61 in [...] pressure 79 mm[Hg] Status: Comment s: Location: [facility]; Position: Sitting Body height 61 in Status: [...] Appointment; TIMMY FRANCISCO M.D. On: 11-Jan-2020 14:00 Interventions Provided Medication Changes* predniSONE 2.5 MG Oral Tablet - Renew Labs/Procedures/Imaging* [QL] CBC (INCLUDES DIFF/PLT); To Be Done: 11 Dec 2019 * [QL] CMP W/EGFR; To Be Done: 11 Dec 2019 * XRAY Wrist complete ( min.3 views) [id number]; To Be Done: 11 Dec 2019 Discussion/Summary* 74 yo WF with generalized OA, likely erosive OA of the hands, and possible gout (uric acid previously controlled on allopurinol 300mg daily prescribed by PCP) here for follow-up of OA. Pred 2.5 or 5mg MWF helps significantly for hand pain, and duloxetine helps with knee pain but was associated with lethargy at 30 mg twice daily--did not restart it after prior visit. Tylenol Arthritis 2 tabs BID helped significantly as well. 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 Griffith, was given a compounded medication--very expensive for her, but it worked very well for her pain. She used it sparingly. * Notably, has only had two presumed gout flares in her lifetime without crystal confirmation. Uric acid controlled in the past. * Since last visit, her grabbed her right hand/wrist as he fell and she's had pain along the dorsal wrist since that's improving gradually. * - Keep taking Caltrate * - R wrist XRs; if negative, order MRI R wrist * - Labs as above * - Okay to continue prednisone 2.5mg or 5mg 3 days weekly, but try to maintain a lower dose of 2.5 mg 3 days weekly if possible. DXA 02/2015 and also 12/2016 both normal. * - C/w Tylenol Arthritis up to 3 gms daily * - May use Voltaren gel over R wrist--has some at home * RTC 1 month or sooner PRN. * Timmy Francisco MD * Staff Acid Cutter * [facility] Instructions Name Dates Details Instructions not documented [...]
--- OUTSIDE RECORDS SUMMARY | 2020-01-17 12:19 | XMS REPORT | Summary of Care ---
Author ANNETTE Dee Organization Unknown Address Unknown Phone Unavailable Care Team Providers Care Blueprint Engineer Name Role Phone TOBIAS P.ATonny, HUNTER Unavailable Unavailable CAESAR Hurtado, TIMMY Unavailable Unavailable Vaishali Schafer Unavailable Unavailable DHEERAJ ALLEN [place], BERTA BREEN Unavailable Unavailable CAESAR ALLEN [place], TIMMY Unavailable Unavailable NKECHI SHELDON [place], [place] Unavailable Unavailable DHEERAJ Hurtado, BERTA Jett Unavailable TOBIAS MCGINNIS, HUNTER Unavailable Unavailable Nidhi ALLEN, Anurag Unavailable Unavailable BRANDI ALLEN, FELY Menon Unavailable Unavailable FILEMON EDGE CUTTER-C, CHERYL SUAZO Unavailable Unavailable LUIS ALLEN [...] Details XRAY Wrist complete ( min.3 views) [id number] Date: 11-Dec-2019 History of Wrist Surgery Completed History of Shoulder Surgery Completed History of Leg Repair Completed History of PTCA Completed Immunization Name Dates Details Influenza on: 15-Mar-2012 Fluzone INJ Lot #: [id number] on: 20-Feb-2013 Influenza on: 20-Feb-2015 Prevnar 13 Intramuscular Suspension Lot #: [id number] on: 22-Mar-2015 Fluzone Quadrivalent 0.5 ML Intramuscula r Suspension Prefilled Syringe Lot #: [id number] on: 28-Jan-2016 Fluzone Quadrivalent 0.5 ML Intramuscula r Suspension Prefilled Syringe Lot #: [id number] on: 28-Jan-2016 Fluzone Quadrivalent 0.5 ML Intramuscula r Suspension Prefilled Syringe Lot #: [id number] on: 15-Mar-2017 Pneumococcal polysaccharide vaccine, 23 valent Lot #: [id number] on: 15-Mar-2017 Fluzone High-Dose 0.5 ML Intramuscular S uspension Prefilled Syringe Lot #: [id number] on: 26-Jan-2018 Fluzone High-Dose 0.5 ML Intramuscular S uspension Prefilled Syringe Lot #: [id number] on: 01-Mar-2019 Family History Name Dates Details [...] pressure 115 mm[Hg] Status: Comments : Location: [facility]; Position: Sitting Diastolic blood pressure 72 mm[Hg] Status: Comment s: Location: [facility]; Position: Sitting Body height 61 in Status: Weight 166 lb Status: Body mass index (BMI) [Ratio] 31.37 kg/m2 Status: Body surface area Derived from formula 1.75 m2 S tatus: Body temperature 96.8 f Status: Heart Rate 78 /min Status: Respiratory rate 15 /min Status: :30 Systolic blood pressure 129 mm[Hg] Status: Comments : Location: [facility] [place]; Position: Sitting Diastolic blood pressure 79 mm[Hg] Status: Comment s: Location: [facility] [place]; Position: Sitting Body height 61 in Status: [...] Problem not documented On: 26-Jan-2018 10:30 Appointment; HUNTRE COLLADO P.A. Encounter Diagnosis: Problem not documented [...]
--- OUTSIDE RECORDS SUMMARY | 2020-01-17 12:20 | XMS REPORT | Summary of Care ---
Author Author Edgar Hoffman, ANNETTE MATTHEWS Organization Unknown Address Unknown Phone Unavailable Care Team Providers Care Storage Architect Name Role Phone TOBIAS Denny, HUNTER Unavailable Unavailable CAESAR Hurtado, TIMMY Unavailable Unavailable DHEERAJ ALLEN [place], BERTA BREEN Unavailable Unavailable CAESAR ALLEN [place], TIMMY Unavailable Unavailable NKECHI SHELDON [place], TRISTON Unavailable Unavailable DHEERAJ Hurtado, BERTA Unavailable Unavailable TOBIAS MCGINNIS, HUNTER Unavailable Unavailable Nidhi ALLEN, Anurag Unavailable Unavailable BRANDI ALLEN, FELY Menon Unavailable Unavailable FILEMON STAMP PRESSER, CHERYL SUAZO Unavailable Unavailable LUIS ALLEN [place], UZIEL Lane Unavailable Unavailable Unavailable Unavailable Functional [...] On prednisone therapy (V58.65, Z79.52) Status: Active Right wrist pain (719.43, M25.531) Status: Active Pain of wrist after trauma (719.43, M25. 539) Status: Active Hypokalemia (276.8, E87.6) Status: Active Cervicalgia (723.1, M54.2) Status: Active Medications Name Dates Details cloNIDine [...] Refills: 0 * Start : 15-Mar-2012 Active Aspirin 81 MG TABS TAKE 1 [...] TABLET TWICE DAILY * Refills: 0 Active Imodium A-D 2 MG Oral Capsule [...] Start : 01-Sep-2019 Active 45 GM Tube Potassium Chloride ER 20 MEQ Oral Tablet Extended Release TAKE 1 TABLET DAILY * Quantity: 10 Refills: 0 COLLADO P.A., HUNTER * Start : 29-Dec-2019 Active Allergies and Adverse Reactions Name Dates Details [...] Z92.29) Status: Resolved History of pneumococcal vaccination (V4 .89, Z92.29) Status: Resolved History of Rectal pain (569.42, K62.89) Status: Resolved History of thyroid disease (V12.29, Z86. 39) Status: Resolved History of vaginitis (V13.29, Z87.42) Status: Resolved History of Wrist pain, acute, left (719. 43, M25.532) Status: Resolved Procedures Procedure Dates Details [QL] CMP W/EGFR Date: 15-Jan-2020 XRAY Spine cervical minimum of 4 views 66781 Date: 15-Jan-20 20 MR Wrist wo contrast [id number] Date: 18-Dec-2019 History of Wrist Surgery Completed History of Shoulder Surgery Completed History of Leg Repair Completed History of PTCA Completed Immunization Name Dates Details Influenza on: 15-Mar-2012 Fluzone INJ Lot #: [id number] on: 20-Feb-2013 Influenza on: 20-Feb-2015 Prevnar 13 Intramuscular Suspension Lot #: [id number] on: 22-Mar-2015 Fluzone Quadrivalent 0.5 ML Intramuscula r Suspension Prefilled Syringe Lot #: [id number] on: 28-Jan-2016 Fluzone Quadrivalent 0.5 ML Intramuscula r Suspension Prefilled Syringe Lot #: [id number] on: 28-Jan-2016 Fluzone Quadrivalent 0.5 ML Intramuscula r Suspension Prefilled Syringe Lot #: [id number] on: 15-Mar-2017 Pneumococcal polysaccharide vaccine, 23 valent Lot #: [id number] on: 15-Mar-2017 Fluzone High-Dose 0.5 ML Intramuscular S uspension Prefilled Syringe Lot #: [id number] on: 26-Jan-2018 Fluzone High-Dose 0.5 ML Intramuscular S uspension Prefilled Syringe Lot #: [id number] on: 01-Mar-2019 Family History Name Dates Details [...] (finding) Vital Signs Date Test Result Details :45 Systolic blood pressure 185 mm[Hg] Status: Comments : Location: LUE; Position: Sitting Diastolic blood pressure 84 mm[Hg] Status: Comment s: Location: LUE; Position: Sitting Body height 61 in Status: Weight 172.25 lb Status: Body mass index (BMI) [Ratio] 32.55 kg/m2 Status: Body surface area Derived from formula 1.77 m2 S tatus: Body temperature 98.5 f Status: Comments: Me thod: Temporal Heart Rate 78 /min Status: Respiratory rate 16 /min Status: Results Date Description Value Details :30 [QL] CMP W/EGFR Comments: REPORT COM MENT:FASTING:NO GLUCOSE 101 mg/dl (Normal) Range: 65-13 9 Comments: Non-fasting reference interval UREA NITROGEN (BUN) 14 mg/dl (Normal) Range: 7- 25 CREATININE 1.00 mg/dl (Above high threshol d) Range: 0.60-0.93 Comments: For patients >49 years of age, the reference limitfor Creatinine is approximately 13% higher for peopleidentified as -Grenadian. eGFR NON-AFR. [place]ENEGAL[place] 55 {ML/MIN/1.7} (Below l ow threshold) Range: > OR = 60 eGFR 64 {ML/MIN/1.7} (Normal) Range: > OR = 60 BUN/CREATININE RATIO 14 {CALC} (Normal) Range: 6-22 SODIUM 147 mmol/L (Above high threshol d) Range: 135-146 POTASSIUM 2.7 mmol/L (Below low threshold ) Range: 3.5-5.3 Comments: Verified by repeat analysis. CHLORIDE 106 mmol/L (Normal) Range: 98-1 10 CARBON DIOXIDE 32 mmol/L (Normal) Range: 20-32 CALCIUM 8.5 mg/dl (Below low threshold) Range: 8.6-10.4 PROTEIN, TOTAL 5.6 g/dl (Below low threshold) Range: 6.1-8.1 ALBUMIN 3.4 g/dl (Below low threshold) Range: 3.6-5.1 GLOBULIN 2.2 {G/DL__CALC} (Normal) Range : 1.9-3.7 ALBUMIN/GLOBULIN RATIO 1.5 {CALC} (Normal) Rang e: 1.0-2.5 BILIRUBIN, TOTAL 0.4 mg/dl (Normal) Range: 0.2- 1.2 ALKALINE PHOSPHATASE 45 u/l (Normal) Range: 37- 153 AST 13 u/l (Normal) Range: 10-35 ALT 7 u/l (Normal) Range: 6-29 Plan of Care Name Dates Details Planned Observations Planned Goals not documented Planned Encounters Appointment; MYAH BOWIE M.D. On: 01-Mar-2020 14:45 Interventions Provided Labs/Procedures/Imaging* [QL] CMP W/EGFR; To Be Done: 15 Jan 2020 * XRAY Spine cervical minimum of 4 views [id number]; To Be Done: 15 Jan 2020 Instructions Name Dates Details Instructions not documented [...] Diagnosis: Problem not documented On: 11-Dec-2019 14:00 Appointment; HUNTER COLLADO P.A. Encounter Diagnosis: Problem not documented On: 15-Jan-2020 13:30
--- OUTSIDE RECORDS SUMMARY | 2020-01-17 12:20 | XMS REPORT | Summary of Care ---
Author ANNETTE Warren Organization Unknown Address Unknown Phone Unavailable Care Team Providers Care Message And Delivery Service Pricer Name Role Phone TOBIAS Denny, HUNTER Unavailable Unavailable CAESAR Hurtado, TIMMY Unavailable Unavailable DHEERAJ ALLEN [place], BERTA BREEN Unavailable Unavailable CAESAR ALLEN [place], TIMMY Unavailable Unavailable NKECHI SHELDON [place], [place] Unavailable Unavailable DHEERAJ Hurtado, BERTA Unavailable Unavailable TOBIAS MCGINNIS, HUNTER Unavailable Unavailable Nidhi ALLEN, Anurag Unavailable Unavailable BRANDI ALLEN, FELY Menon Unavailable Unavailable FILEMON GORE SEAMER, CHERYL SUAZO Unavailable Unavailable LUIS ALLEN [place], UZIEL Lane Unavailable Unavailable Unavailable Unavailable Functional [...] M25.532) Status: Resolved Procedures Procedure Dates Details MR Thomas wo contrast [id number] Date: 18-Dec-2019 History of Wrist Surgery Completed History of Shoulder Surgery Completed History of Leg Repair Completed History of PTCA Completed Immunization Name Dates Details Influenza on: 15-Mar-2012 Fluzone INJ Lot #: [id number] on: 20-Feb-2013 Influenza on: 20-Feb-2015 Prevnar 13 Intramuscular Suspension Lot #: [id number] on: 22-Mar-2015 Fluzone Quadrivalent 0.5 ML Intramuscula r Suspension Prefilled Syringe Lot #: [id number] on: 28-Jan-2016 Fluzone Quadrivalent 0.5 ML Intramuscula r Suspension Prefilled Syringe Lot #: [id number] on: 28-Jan-2016 Fluzone Quadrivalent 0.5 ML Intramuscula r Suspension Prefilled Syringe Lot #: [id number] on: 15-Mar-2017 Pneumococcal polysaccharide vaccine, 23 valent Lot #: [id number] on: 15-Mar-2017 Fluzone High-Dose 0.5 ML Intramuscular S uspension Prefilled Syringe Lot #: [id number] on: 26-Jan-2018 Fluzone High-Dose 0.5 ML Intramuscular S uspension Prefilled Syringe Lot #: [id number] on: 01-Mar-2019 Family History Name Dates Details [...] pressure 115 mm[Hg] Status: Comments : Location: E; Position: Sitting Diastolic blood pressure 72 mm[Hg] [...] pressure 79 mm[Hg] Status: Comment s: Location: E; Position: Sitting Body height 61 in Status: [...] is approximately 13% higher for peopleidentified as -Malagasy. eGFR NON-AFR. [place] 52 {ML/MIN/1.7} (Below l ow threshold) Range: [...] 10-35 ALT 9 u/l (Normal) Range: 6-29 [id number] [QL] CBC (INCLUDES DIFF/PLT) Comments: REPORT COMMENT:FASTING:NO [...] ABSOLUTE NEUTROPHILS 2392 {cells/uL} (Normal) R eileen: 9037-1571 ABSOLUTE LYMPHOCYTES 2254 {cells/uL} (Normal) R eileen: 850-3900 ABSOLUTE MONOCYTES 383 {cells/uL} (Normal) Rang e: 200-950 ABSOLUTE EOSINOPHILS 51 {cells/uL} (Normal) Ran ge: 15-500 ABSOLUTE BASOPHILS 20 {cells/uL} (Normal) Range : 0-200 NEUTROPHILS 46.9 % (Normal) LYMPHOCYTES 44.2 % (Normal) MONOCYTES 7.5 % (Normal) EOSINOPHILS 1.0 % (Normal) BASOPHILS 0.4 % (Normal) :27 XRAY Wrist complete ( min.3 views) [id number] Wrist complete ( min.3 views) SEE NOTES Co mments: EXAM: Wrist complete DXHISTORY: - M25.531 Pain in right wrist; M15.9 Polyosteoarthritis,unspecified;M15.4 Erosive (osteo)arthritis; Z79.52 salvage determiner (current) useof systemic steroidsCOMPARISON: None3 views of the right wristFINDINGS:There is advanced joint space narrowing at the thumb carpometacarpal andtriscaphe joints. No fracture or dislocation is seen.IMPRESSION: Advanced degenerative change.--Read by: Camryn Berry MDDictated Date/time: 12/15/19 15:08Electronically Signed by: Camryn Berry MD 12/14/2014:10FINAL REPORT :30 [QL] CMP W/EGFR Comments: REPORT COM MENT:FASTING:NO GLUCOSE 101 mg/dl (Normal) Range: 65-13 9 Comments: Non-fasting reference interval UREA NITROGEN (BUN) 14 mg/dl (Normal) Range: 7- 25 CREATININE 1.00 mg/dl (Above high threshol d) Range: 0.60-0.93 Comments: For patients >49 years of age, the reference limitfor Creatinine is approximately 13% higher for peopleidentified as -Malagasy. eGFR NON-AFR. [place] 55 {ML/MIN/1.7} (Below l ow threshold) Range: [...] BOWIE M.D. On: 01-Mar-2020 14:45 Interventions Provided Medication Changes* Potassium Chloride ER 20 MEQ Oral Tablet Extended Release - Start Instructions Name Dates Details Instructions not documented [...] documented On: 01-Sep-2019 10:30 Appointment; HUNTER COLLADO PArben Encounter Diagnosis: Problem not documented On: 21-Sep-2019 11:00 Appointment; HUNTER COLLADO PArben Encounter Diagnosis: Problem not documented On: 06-Dec-2019 14:30 Appointment; TIMMY MAYNARD M.D. Encounter Diagnosis: Problem not documented On: 11-Dec-2019 14:00
--- OUTSIDE RECORDS SUMMARY | 2020-01-17 12:20 | XMS REPORT | Summary of Care ---
Author Author Sravani Pond, ANNETTE PANCHAL Organization Unknown Address Unknown Phone Unavailable Care Team Providers Care Sales Operations Associate Name Role Phone TOBIAS Denny, HUNTER Unavailable Unavailable CAESAR Hurtado, TIMMY Unavailable Unavailable Sravani Pond, Estefany Unavailable Unavailable DHEERAJ ALLEN [place], BERTA BREEN Unavailable Unavailable CAESAR ALLEN [place], TIMMY Unavailable Unavailable NKECHI SHELDON [place], [place] Unavailable Unavailable DHEERAJ Hurtado, BERTA Unavailable Unavailable TOBIAS MCGINNIS, HUNTER Unavailable Unavailable Nidhi ALLEN, Anurag Unavailable Unavailable BRANDI ALLEN, FELY Menon Unavailable Unavailable FILEMON BROKERAGE OFFICE MANAGER, CHERYL SUAZO Unavailable Unavailable LUIS ALLEN [place], UZIEL Lane Unavailable Unavailable Unavailable Unavailable Functional [...] joint pain. * Quantity: 72 Refills: 0 JAMALYARIA M.D., TIMMY * Start : 28-Sep-2018 Active Clotrimazole 1 % External Cream APPLY 2-3 TIMES DAILY TO AFFECTED AREA(S) FOR UP TO 2-3 WEEKS * Quantity: 1 Refills: 1 TOBIAS Denny HUNTER * Start : 01-Sep-2019 Active 45 [...] M25.532) Status: Resolved Procedures Procedure Dates Details Wrist wo contrast [id number] Date: 18-Dec-2019 History of Wrist Surgery Completed History of Shoulder Surgery Completed History of Leg Repair Completed History of PTCA Completed Immunization Name Dates Details Influenza on: 15-Mar-2012 Fluzone INJ Lot #: [id number] on: 20-Feb-2013 Influenza on: 20-Feb-2015 Prevnar 13 Intramuscular Suspension Lot #: [id number] on: 22-Mar-2015 Fluzone Quadrivalent 0.5 ML Intramuscula r Suspension Prefilled Syringe Lot #: [id number] on: 28-Jan-2016 Fluzone Quadrivalent 0.5 ML Intramuscula r Suspension Prefilled Syringe Lot #: [id number] on: 28-Jan-2016 Fluzone Quadrivalent 0.5 ML Intramuscula r Suspension Prefilled Syringe Lot #: [id number] on: 15-Mar-2017 Pneumococcal polysaccharide vaccine, 23 valent Lot #: [id number] on: 15-Mar-2017 Fluzone High-Dose 0.5 ML Intramuscular S uspension Prefilled Syringe Lot #: [id number] on: 26-Jan-2018 Fluzone High-Dose 0.5 ML Intramuscular S uspension Prefilled Syringe Lot #: [id number] on: 01-Mar-2019 Family History Name Dates Details [...] pressure 115 mm[Hg] Status: Comments : Location: [facility]; Position: Sitting Diastolic blood pressure 72 mm[Hg] Status: Comment s: Location: [facility]; Position: Sitting Body height 61 in [...] pressure 79 mm[Hg] Status: Comment s: Location: [facility] [place]; Position: Sitting Body height 61 in Status: [...] is approximately 13% higher for peopleidentified as -Italian. eGFR NON-AFR. [place] 52 {ML/MIN/1.7} (Below l ow threshold) Range: [...] ABSOLUTE NEUTROPHILS 2392 {cells/uL} (Normal) R eileen: 3939-2493 ABSOLUTE LYMPHOCYTES 2254 {cells/uL} (Normal) R eileen: 850-3900 ABSOLUTE MONOCYTES 383 {cells/uL} (Normal) Rang e: 200-950 ABSOLUTE EOSINOPHILS 51 {cells/uL} (Normal) Ran ge: 15-500 ABSOLUTE BASOPHILS 20 {cells/uL} (Normal) Range : 0-200 NEUTROPHILS 46.9 % (Normal) LYMPHOCYTES 44.2 % (Normal) MONOCYTES 7.5 % (Normal) EOSINOPHILS 1.0 % (Normal) BASOPHILS 0.4 % (Normal) [id number]:27 XRAY Wrist complete ( min.3 views) [id number] Wrist complete ( min.3 views) SEE NOTES Co mments: EXAM: Wrist complete DXHISTORY: - M25.531 Pain in right wrist; M15.9 Polyosteoarthritis,unspecified;M15.4 Erosive (osteo)arthritis; Z79.52 lobsterman (current) useof systemic steroidsCOMPARISON: None3 views of [...] M.D. On: 01-Mar-2020 14:45 Interventions Provided Discussion/Summary* Guideline Used: * [facility] Pramod Jordan with [facility] called with Critical Result Lab K+ = 2.7 (range 3.5 - 5.3) verified by repeat analysis, collected 12/28/2019 @ 1430pm, completed 12/29/2019 @ 1:31 am, ordering provider: RAMA Cole. specimen #[id number]. * @1:47am NTL contacted RAMA Cole, notified of above information, request NTL to send her a task message and she will contact the patient. NTL sent task notification to Tobias ONTIVEROS. * Intended Caller Action: * Other: sp * Additional Information: * Task sent to RAMA Toth Instructions Name Dates Details Instructions not documented [...]
--- OUTSIDE RECORDS SUMMARY | 2020-01-17 12:20 | XMS REPORT | Summary of Care ---
Author ANNETTE Warren Organization Unknown Address Unknown Phone Unavailable Care Team Providers Care Doctor Of Dental Medicine Name Role Phone TOBIAS Denny, HUNTER Unavailable Unavailable CAESAR Hurtado, TIMMY Unavailable Unavailable DHEERAJ ALLEN [place], BERTA BREEN Unavailable Unavailable CAESAR ALLEN [place], TIMMY Unavailable Unavailable NKECHI SHELDON [place], [place] Unavailable Unavailable DHEERAJ Hurtado, BERTA Unavailable Unavailable TOBIAS MCGINNIS, HUNTER Unavailable Unavailable Nidhi ALLEN, Anurag Unavailable Unavailable BRANDI ALLEN, FELY Menon Unavailable Unavailable FILEMON SNOWMOBILE MECHANIC, CHERYL SUAZO Unavailable Unavailable LUIS ALLEN [place], UZIEL Lane Unavailable Unavailable Unavailable Unavailable Functional [...] 1 TABLET DAILY. * Refills: 0 Active Tylenol Arthritis Pain 650 MG TBCR [...] Start : 01-Sep-2019 Active 45 GM Tube Metoprolol Succinate ER 100 MG Oral Tablet Extended Release 24 Hour TAKE 1 TABLET BY MOUTH DAILY * Quantity: 90 Refills: 1 HUNTER EDOUARD * Start : 03-Aug-2013 Active predniSONE 2.5 MG Oral Tablet Take 1 or 2 tablets on Mondays, Wednesdays, Fridays prn joint pain. * Quantity: 72 Refills: 0 TIMMY MAYNARD M.D. * Start : 28-Sep-2018 Active Allergies and Adverse Reactions Name Dates [...] Status: Resolved Procedures Procedure Dates Details MR Wrist wo contrast [id number] Date: 18-Dec-2019 History of Wrist Surgery Completed History of Shoulder Surgery Completed History of Leg Repair Completed History of PTCA Completed Immunization Name Dates Details Influenza on: 15-Mar-2012 Fluzone INJ Lot #: [id number] on: 20-Feb-2013 Influenza on: 20-Feb-2015 Prevnar 13 Intramuscular Suspension Lot #: [id number] on: 22-Mar-2015 Fluzone Quadrivalent 0.5 ML Intramuscula r Suspension Prefilled Syringe Lot #: [id number] on: 28-Jan-2016 Fluzone Quadrivalent 0.5 ML Intramuscula r Suspension Prefilled Syringe Lot #: [id number] on: 28-Jan-2016 Fluzone Quadrivalent 0.5 ML Intramuscula r Suspension Prefilled Syringe Lot #: [id number] on: 15-Mar-2017 Pneumococcal polysaccharide vaccine, 23 valent Lot #: [id number] on: 15-Mar-2017 Fluzone High-Dose 0.5 ML Intramuscular S uspension Prefilled Syringe Lot #: [id number] on: 26-Jan-2018 Fluzone High-Dose 0.5 ML Intramuscular S uspension Prefilled Syringe Lot #: [id number] on: 01-Mar-2019 Family History Name Dates Details [...] pressure 115 mm[Hg] Status: Comments : Location: [facility]; Position: Sitting Diastolic blood pressure 72 mm[Hg] Status: Comment s: Location: [facility]; Position: Sitting Body height 61 in Status: Weight 166 lb Status: Body mass index (BMI) [Ratio] 31.37 kg/m2 Status: Body surface area Derived from formula 1.75 m2 S tatus: Body temperature 96.8 f Status: Heart Rate 78 /min Status: Respiratory rate 15 /min Status: :30 Systolic blood pressure 129 mm[Hg] Status: Comments : Location: [facility]; Position: Sitting Diastolic blood pressure 79 mm[Hg] [...] is approximately 13% higher for peopleidentified as -Djiboutian. eGFR NON-AFR. [place] 52 {ML/MIN/1.7} (Below l ow threshold) Range: [...] 10-35 ALT 9 u/l (Normal) Range: 6-29 [id number]-Jev-[id number]:52 [QL] CBC (INCLUDES DIFF/PLT) Comments: REPORT COMMENT:FASTING:NO [...] ABSOLUTE NEUTROPHILS 2392 {cells/uL} (Normal) R eileen: 6971-4672 ABSOLUTE LYMPHOCYTES 2254 {cells/uL} (Normal) R eileen: 850-3900 ABSOLUTE MONOCYTES 383 {cells/uL} (Normal) Rang e: 200-950 ABSOLUTE EOSINOPHILS 51 {cells/uL} (Normal) Ran ge: 15-500 ABSOLUTE BASOPHILS 20 {cells/uL} (Normal) Range : 0-200 NEUTROPHILS 46.9 % (Normal) LYMPHOCYTES 44.2 % (Normal) MONOCYTES 7.5 % (Normal) EOSINOPHILS 1.0 % (Normal) BASOPHILS 0.4 % (Normal) :27 XRAY Wrist complete ( min.3 views) [id number] Wrist complete ( min.3 views) SEE NOTES Co mments: EXAM: Wrist complete DXHISTORY: - M25.531 Pain in right wrist; M15.9 Polyosteoarthritis,unspecified;M15.4 Erosive (osteo)arthritis; 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 eGFR NON-AFR. [place] 55 {ML/MIN/1.7} (Below l ow threshold) Range: [...] M.D. On: 01-Mar-2020 14:45 Interventions Provided Discussion/Summary* spoke with patient will call patient afte 6pm// pt not able to speatk at this time at [facility] with her Instructions Name Dates Details Instructions not documented [...]
--- OUTSIDE RECORDS SUMMARY | 2020-01-17 12:20 | XMS REPORT | Summary of Care ---
Author Author Gladys Pond, ANNETTE PANCHAL Organization Unknown Address Unknown Phone Unavailable Care Team Providers Care Newspaper Writer Name Role Phone TOBIAS Denny, KATHIE Unavailable Unavailable CAESAR Hurtado, TIMMY Unavailable Unavailable Gladys Pond, Elis Unavailable Unavailable DHEERAJ ALLEN [place], BERTA BREEN Unavailable Unavailable CAESAR ALLEN [place], TIMMY Unavailable Unavailable NKECHI SHELDON [place], [place] Unavailable Unavailable DHEERAJ Hurtado, BERTA Unavailable Unavailable TOBIAS MCGINNIS, KATHIE Unavailable Unavailable Nidhi ALLEN, Anurag Unavailable Unavailable BRANDI ALLEN, FELY Menon Unavailable Unavailable FILEMON POULTRY OFFAL WORKER, CHERYL SUAZO Unavailable Unavailable LUIS ALLEN [place], UZIEL Lane Unavailable Unavailable Unavailable Unavailable Functional Status Name Dates Details Functional status health issues are not documented Status: Name Dates Details Cognitive status health issues are not d ocumented Status: Problems Name Dates Details Hand pain (729.5, M79.643) Status: Active Vitamin D deficiency (268.9, E55.9) Status: Active Advance directive discussed with patient (V65.49, Z71.89) Status: Active Encounter for mini-mental status examina tion (V70.2, Z00.8) Status: Active At moderate risk for fall [...] TAKE 1 TABLET TWICE DAILY. Quantity: 60 KATHIE EDOUARD * Start : 15-Mar-2012 Active Levothyroxine Sodium 75 MCG Oral Tablet TAKE 1 TABLET DAILY * Quantity: 90 Refills: 1 KATHIE EDOUARD * Start : 15-Mar-2012 Active Multivitamins [...] MOUTH DAILY * Quantity: 90 Refills: 1 KATHIE EDOUARD * Start : 03-Aug-2013 Active Tylenol [...] AT BEDTIME * Quantity: 150 Refills: 1 KATHIE EDOUARD Active Calcium 1250 MG TABS TAKE [...] WEEKS * Quantity: 1 Refills: 1 TOBIAS KatA., KATHIE * Start : 01-Sep-2019 Active 45 GM Tube Potassium Chloride ER 20 MEQ Oral Tablet Extended Release TAKE 1 TABLET DAILY * Quantity: 10 Refills: 0 COLLADO P.A., KATHIE * Start : 29-Dec-2019 Active Allergies and [...] Procedures Procedure Dates Details Wrist wo contrast [id number] Date: 18-Dec-2019 History of Wrist Surgery Completed History of Shoulder Surgery Completed History of Leg Repair Completed History of PTCA Completed Immunization Name Dates Details Influenza on: 15-Mar-2012 Fluzone INJ Lot #: [id number] on: 20-Feb-2013 Influenza on: 20-Feb-2015 Prevnar 13 Intramuscular Suspension Lot #: [id number] on: 22-Mar-2015 Fluzone Quadrivalent 0.5 ML Intramuscula r Suspension Prefilled Syringe Lot #: [id number] on: 28-Jan-2016 Fluzone Quadrivalent 0.5 ML Intramuscula r Suspension Prefilled Syringe Lot #: [id number] on: 28-Jan-2016 Fluzone Quadrivalent 0.5 ML Intramuscula r Suspension Prefilled Syringe Lot #: [id number] on: 15-Mar-2017 Pneumococcal polysaccharide vaccine, 23 valent Lot #: [id number] on: 15-Mar-2017 Fluzone High-Dose 0.5 ML Intramuscular S uspension Prefilled Syringe Lot #: [id number] on: 26-Jan-2018 Fluzone High-Dose 0.5 ML Intramuscular S uspension Prefilled Syringe Lot #: [id number] on: 01-Mar-2019 Family History Name Dates Details [...] higher for peopleidentified as -Grenadian. eGFR NON-AFR. SOUTH AFRICAN 55 {ML/MIN/1.7} (Below l ow threshold) Range: [...] 14:45 Interventions Provided Discussion/Summary* Guideline Used: * [facility] * [facility] reporting a Critical lab--Potassium level= 2.7 (collected on 01/14 @ 1500--- verified by repeat analysis). ABNORMAL LAB---- CMP---CREATININE= 1.05; eGFR= 52; Sodium= 149; Carbon Dioxide= 40; Protein Total= 5.8; Rest of CMP levels are within normal limits. Ordering physician is RAMA Collado. Triage Nurse contacted RAMA Collado @ [phone] and reported the above Critical and Abnormal labs. RAMA Collado stated she will contact the patient later today. * Chart Reviewed. * Recommended Disposition: Please call back if any questions or concerns should arise. * Intended Caller Action: * Other: Cri * Additional Information: * Task sent to Kathie ONTIVEROS * Patient verbalizes understanding and had no further questions at this time. Instructions Name Dates Details Instructions not documented Encounters Appointment; KATHIE COLLADO P.A. Encounter Diagnosis: Problem not documented On: 26-Jan-2018 10:30 Appointment; KATHIE COLLADO P.A. Encounter Diagnosis: Problem not documented On: 22-Feb-2018 13:30 Appointment; FELY PAZ M.D. Encounter Diagnosis: Problem not documented On: 10-Mar-2018 13:00 Appointment; KATHIE COLLADO P.A. Encounter Diagnosis: Problem not documented [...] Problem not documented On: 06-Sep-2018 13:00 Appointment; KATHIE COLLADO P.A. Encounter Diagnosis: Problem not documented [...] Problem not documented On: 01-Mar-2019 16:00 Appointment; KATHIE COLLADO P.A. Encounter Diagnosis: Problem not documented On: 30-Mar-2019 14:30 Appointment; TIMMY MAYNARD M.D. Encounter Diagnosis: Problem not documented On: 12-Jun-2019 14:30 Appointment; SIRIA CASTANEDA APRN Encounter Diagnosis: Problem not documented On: 01-Sep-2019 10:30 Appointment; KATHIE COLLADO P.A. Encounter Diagnosis: Problem not documented On: 21-Sep-2019 11:00 Appointment; KATHIE COLLADO P.A. Encounter Diagnosis: Problem not documented On: 06-Dec-2019 14:30 Appointment; TIMMY MAYNARD M.D. Encounter Diagnosis: Problem not documented On: 11-Dec-2019 14:00 Appointment; KATHIE COLLADO P.A. Encounter Diagnosis: Problem not documented On: 15-Jan-2020 13:30
--- OUTSIDE RECORDS SUMMARY | 2020-01-17 12:20 | XMS REPORT | Summary of Care ---
Author ANNETTE Tyler M.A. Organization Unknown Address Unknown Phone Unavailable Care Team Providers Care Steam Generating Powerplant Mechanic Name Role Phone TOBIAS Denny, HUNTER Unavailable Unavailable CAESAR Hurtado, TIMMY Unavailable Unavailable DHEERAJ ALLEN [place], BERTA BREEN Unavailable Unavailable CAESAR ALLEN [place], TIMMY Unavailable Unavailable NKECHI SHELDON [place], TRISTON Unavailable Unavailable DHEERAJ Hurtado, BERTA Unavailable Unavailable TOBIAS MCGINNIS, HUNTER Unavailable Unavailable Nidhi ALLEN, Anurag Unavailable Unavailable BRANDI ALLEN, FELY Menon Unavailable Unavailable FILEMON WARP DOFFER, CHERYL SUAZO Unavailable Unavailable LUIS ALLEN [place], [...] Dates Details [QL] CMP W/EGFR Date: 15-Jan-2020 MR Wrist wo contrast [id number] Date: 18-Dec-2019 XRAY Spine cervical minimum of 4 views 04226 Date: 15-Jan-20 History of Wrist Surgery Completed History of Shoulder Surgery Completed History of Leg Repair Completed History of PTCA Completed Immunization Name Dates Details Influenza on: 15-Mar-2012 Fluzone INJ Lot #: [id number] on: 20-Feb-2013 Influenza on: 20-Feb-2015 Prevnar 13 Intramuscular Suspension Lot #: [id number] on: 22-Mar-2015 Fluzone Quadrivalent 0.5 ML Intramuscula r Suspension Prefilled Syringe Lot #: [id number] on: 28-Jan-2016 Fluzone Quadrivalent 0.5 ML Intramuscula r Suspension Prefilled Syringe Lot #: [id number] on: 28-Jan-2016 Fluzone Quadrivalent 0.5 ML Intramuscula r Suspension Prefilled Syringe Lot #: [id number] on: 15-Mar-2017 Pneumococcal polysaccharide vaccine, 23 valent Lot #: [id number] on: 15-Mar-2017 Fluzone High-Dose 0.5 ML Intramuscular S uspension Prefilled Syringe Lot #: [id number] on: 26-Jan-2018 Fluzone High-Dose 0.5 ML Intramuscular S uspension Prefilled Syringe Lot #: [id number] on: 01-Mar-2019 Family History Name Dates Details [...] is approximately 13% higher for peopleidentified as -[place]. eGFR NON-AFR. ARGENTINE 55 {ML/MIN/1.7} (Below l ow threshold) Range: [...] XRAY Spine cervical minimum of 4 views 99492; To Be Done: 15 Jan 2020 Instructions [...]
--- OUTSIDE RECORDS SUMMARY | 2020-01-17 12:20 | XMS REPORT | Summary of Care ---
Author Author Wil Pond, ANNETTE Mac Organization Unknown Address Unknown Phone Unavailable Care Team Providers Care Finger Buff Sewer Name Role Phone TOBIAS Denny, HUNTER Unavailable Unavailable CAESAR Hurtado, TIMMY Unavailable Unavailable Wil Pond, Saumya Unavailable Unavailable DHEERAJ ALLEN [place], BERTA BREEN Unavailable Unavailable CAESAR ALLEN [place], TIMMY Unavailable Unavailable NKECHI SHELDON [place], [place] Unavailable Unavailable DHEERAJ Hurtado, BERTA Unavailable Unavailable TOBIAS MCGINNIS, HUNTER Unavailable Unavailable Nidhi ALLEN, Anurag Unavailable Unavailable BRANDI ALLEN, FELY Menon Unavailable Unavailable FILEMON PERSONNEL INTERVIEWER-C, CHERYL SUAZO Unavailable Unavailable LUIS ALLEN [place], UZIEL Lane Unavailable Unavailable Unavailable Unavailable Functional [...] joint pain. * Quantity: 72 Refills: 0 CAESAR HurtadoTIMMY * Start : 28-Sep-2018 Active Clotrimazole 1 % External Cream APPLY 2-3 TIMES DAILY TO AFFECTED AREA(S) FOR UP TO 2-3 WEEKS * Quantity: 1 Refills: 1 TOBIAS Hill.Nicolle HUNTER * Start : 01-Sep-2019 Active 45 [...] W/EGFR Date: 13-Dec-2019 MR Wrist wo contrast [id number] Date: 18-Dec-2019 History of Wrist Surgery Completed History of Shoulder Surgery Completed History of Leg Repair Completed History of PTCA Completed Immunization Name Dates Details Influenza on: 15-Mar-2012 Fluzone INJ Lot #: [id number] on: 20-Feb-2013 Influenza on: 20-Feb-2015 Prevnar 13 Intramuscular Suspension Lot #: [id number] on: 22-Mar-2015 Fluzone Quadrivalent 0.5 ML Intramuscula r Suspension Prefilled Syringe Lot #: [id number] on: 28-Jan-2016 Fluzone Quadrivalent 0.5 ML Intramuscula r Suspension Prefilled Syringe Lot #: [id number] on: 28-Jan-2016 Fluzone Quadrivalent 0.5 ML Intramuscula r Suspension Prefilled Syringe Lot #: [id number] on: 15-Mar-2017 Pneumococcal polysaccharide vaccine, 23 valent Lot #: [id number] on: 15-Mar-2017 Fluzone High-Dose 0.5 ML Intramuscular S uspension Prefilled Syringe Lot #: [id number] on: 26-Jan-2018 Fluzone High-Dose 0.5 ML Intramuscular S uspension Prefilled Syringe Lot #: [id number] on: 01-Mar-2019 Family History Name Dates Details [...] pressure 115 mm[Hg] Status: Comments : Location: [facility]; Position: Sitting Diastolic blood pressure 72 mm[Hg] [...] is approximately 13% higher for peopleidentified as -Beninese. eGFR NON-AFR. SERBIAN 52 {ML/MIN/1.7} (Below l ow threshold) Range: [...] ABSOLUTE NEUTROPHILS 2392 {cells/uL} (Normal) R eileen: 0606-1508 ABSOLUTE LYMPHOCYTES 2254 {cells/uL} (Normal) R eileen: 850-3900 ABSOLUTE MONOCYTES 383 {cells/uL} (Normal) Rang e: 200-950 ABSOLUTE EOSINOPHILS 51 {cells/uL} (Normal) Ran ge: 15-500 ABSOLUTE BASOPHILS 20 {cells/uL} (Normal) Range : 0-200 NEUTROPHILS 46.9 % (Normal) LYMPHOCYTES 44.2 % (Normal) MONOCYTES 7.5 % (Normal) EOSINOPHILS 1.0 % (Normal) BASOPHILS 0.4 % (Normal) [id number] XRAY Wrist complete ( min.3 views) [id number] Wrist complete ( min.3 views) SEE NOTES [...] 14:45 Interventions Provided Discussion/Summary* Guideline Used: * Other: get mess * Blake * Patient calling to tell Dr. Francisco that her wrist is feeling better and she is not going to have the MRI done at this time. Task sent to Dr. Francisco to advise. No new signs or symptoms from patient at this time. * Recommended Disposition: Call back with any further signs, symptoms, questions or concerns * Intended Caller Action: * Other: get message to Dr. Francisco Instructions Name Dates Details Instructions [...]
--- OUTSIDE RECORDS SUMMARY | 2020-01-17 12:20 | XMS REPORT | Summary of Care ---
Author ANNETTE Warren Organization Unknown Address Unknown Phone Unavailable Care Team Providers Care Rebar Worker Name Role Phone TOBIAS Denny, HUNTER Unavailable Unavailable CAESAR Hurtado, TIMMY Unavailable Unavailable DHEERAJ ALLEN [place], BERTA BREEN Unavailable Unavailable CAESAR ALLEN [place], TIMMY Unavailable Unavailable NKECHI SHELDON [place], TRISTON Unavailable Unavailable DHEERAJ Hurtado, BERTA Unavailable Unavailable TOBIAS MCGINNIS, HUNTER Unavailable Unavailable iNdhi ALLEN, Anurag Unavailable Unavailable BRANDI ALLEN, FELY Menon Unavailable Unavailable FILEMON POWER HOUSE CONTROL ROOM OPERATOR, CHERYL SUAZO Unavailable Unavailable LUIS ALLEN [place], UZIEL Lane Unavailable Unavailable Unavailable Unavailable Functional [...] TABLET DAILY * Quantity: 10 Refills: 0 TOBIAS P.HUNTER Valverde * Start : 29-Dec-2019 Active Allergies and [...] Procedures Procedure Dates Details Wrist wo contrast [id number] Date: 18-Dec-2019 History of Wrist Surgery Completed History of Shoulder Surgery Completed History of Leg Repair Completed History of PTCA Completed Immunization Name Dates Details Influenza on: 15-Mar-2012 Fluzone INJ Lot #: [id number] on: 20-Feb-2013 Influenza on: 20-Feb-2015 Prevnar 13 Intramuscular Suspension Lot #: [id number] on: 22-Mar-2015 Fluzone Quadrivalent 0.5 ML Intramuscula r Suspension Prefilled Syringe Lot #: [id number] on: 28-Jan-2016 Fluzone Quadrivalent 0.5 ML Intramuscula r Suspension Prefilled Syringe Lot #: [id number] on: 28-Jan-2016 Fluzone Quadrivalent 0.5 ML Intramuscula r Suspension Prefilled Syringe Lot #: [id number] on: 15-Mar-2017 Pneumococcal polysaccharide vaccine, 23 valent Lot #: [id number] on: 15-Mar-2017 Fluzone High-Dose 0.5 ML Intramuscular S uspension Prefilled Syringe Lot #: [id number] on: 26-Jan-2018 Fluzone High-Dose 0.5 ML Intramuscular S uspension Prefilled Syringe Lot #: [id number] on: 01-Mar-2019 Family History Name Dates Details [...] is approximately 13% higher for peopleidentified as -Vietnamese. eGFR NON-AFR. CANADIAN 55 {ML/MIN/1.7} (Below l ow threshold) Range: [...] documented On: 01-Sep-2019 10:30 Appointment; HUNTER COLLADO P.ATonny Encounter Diagnosis: Problem not documented On: 21-Sep-2019 11:00 Appointment; HUNTER COLLADO P.ATonny Encounter Diagnosis: Problem not documented On: 06-Dec-2019 14:30 Appointment; TIMMY MAYNARD M.D. Encounter Diagnosis: Problem not documented On: 11-Dec-2019 14:00 Appointment; HUNTER COLLADO PTonnyATonny Encounter Diagnosis: Problem not documented On: 15-Jan-2020 13:30
[2020-01-17 12:52] LABS: BASOPHILS % 0.4 % (0.0-1.0); EOSINOPHILS # (AUTO) 0.1 (0.0-0.4); EOSINOPHILS % 1.8 % (0.0-6.0); HEMATOCRIT 32.2 % (34.2-44.1); HEMOGLOBIN 10.4 g/dL (12.0-16.0); LYMPHOCYTES # (AUTO) 1.8 (1.0-3.2); LYMPHOCYTES % 39.7 % (18.0-39.1); MEAN CORPUSCULAR HGB CONC 32.3 g/dL (31-35); MEAN CORPUSCULAR VOLUME 96.1 fL (81-99); MONOCYTES # (AUTO) 0.4 (0.2-0.8); MONOCYTES % 8.6 % (4.4-11.3); NEUTROPHILS # (AUTO) 2.2 (2.1-6.9); NEUTROPHILS % 49.1 % (38.7-80.0); PLATELET COUNT 253 x10e3/uL (140-360); RED BLOOD COUNT 3.35 x10e6/uL (3.6-5.1); RED CELL DISTRIBUTION WIDTH 13.6 % (11.7-14.4)
[2020-01-17 13:11] LABS: ALBUMIN 2.8 g/dL (3.5-5.0); ANION GAP 15.3 mmol/L (8-16); CALCIUM 8.2 mg/dL (8.4-10.2); CREATININE, SERUM 0.95 mg/dL (0.57-1.11); MAGNESIUM 1.2 MG/DL (1.3-2.1)
[2020-01-17 13:12] LABS: POTASSIUM 2.3 mmol/L (3.5-5.1)
[2020-01-17] MEDS ORDERED: POTASSIUM CHLORIDE 20 MEQ TAB CR PO STA (13:19)
[2020-01-17] MEDS ORDERED: MAGNESIUM SULFATE 2GM/50ML 50 ML IV ONE (13:30)
[2020-01-17] MEDS ORDERED: SODIUM CHLORIDE 0.9% 500ML 500 ML IV ONE (13:30)
--- NOTE | 2020-01-17 14:31 | Emergency Department Note ---
History of Present Illnes History of Present Illness Chief Complaint: General Medicine Complaints History of Present Illness This is a 74 year old female PATIENT IN FROM HOME; STATES WAS SENT BY PCP FOR A POTASSIUM INFUSION. PATIENT STATES THAT SHE WAS TOLD HER POTASSIUM LEVEL WAS 2.7; PATIENT WITH A HISTORY OF LOW POTASSIUM AND CHRONIC DIARRHEA - TAKES A DAILY SUPPLEMENT OF 20 mEQ. Historian: Patient Arrival Mode: Car Alkylation Operator Required: No Location: NO SYMPTOMS Radiation: Reports non-radiation Severity: mild Onset quality: gradual Chronicity: chronic Context: Denies recent illness Relieving factors: none Exacerbating factors: none Associated symptoms: Reports denies other symptoms Treatments prior to arrival: none Past Medical/Family History Physician Review I have reviewed the patient's past medical and family history. Any updates have been documented here. Past Medical History Recent Fever: No Clinical Suspicion of Infectio: No New/Unexplained Change in Ment: No Past Medical History: Hypertension, Hypothyroidism, Depression, Hyperlipedemia, Osteoarthritis Other Medical History: LOW POTASSIUM GLAUCOMA Other Surgery: NECK LYMPH NODE REMOVAL RIGHT ARM SURGERY - 2013 Social History Smoking Cessation: Never Smoker Counseling Performed: No Alcohol Use: None Any Illegal Drug Use: No TB Exposure/Symptoms: No Physically hurt or threatened: No Family History Family history of heart diseas: No Other Any Pre-Existing Lines (PICC,: No Review of Systems Review of Systems Constitutional: Reports no symptoms EENTM: Reports no symptoms Cardiovascular: Reports no symptoms Respiratory: Reports no symptoms Gastrointestinal: Reports no symptoms Genitourinary: Reports no symptoms Musculoskeletal: Reports no symptoms Integumentary: Reports no symptoms Neurological: Reports no symptoms Psychological: Reports no symptoms Endocrine: Reports no symptoms Hematological/Lymphatic: Reports no symptoms Physical Exam Related Data Allergies: Coded Allergies: Tetanus Vaccines and Toxoid (Verified Allergy, Severe, 01/17/20) hydromorphone (Verified Allergy, Unknown, 01/17/20) Triage Vital Signs Vital Signs Date Time Temp Pulse Resp B/P (MAP) Pulse Ox O2 Delivery O2 Flow Rate FiO2 01/17/20 12:11 97.9 74 18 212/99 99 Room Air Vital signs reviewed: Yes Physical Exam CONSTITUTIONAL Constitutional: Present well-developed, Present well-nourished HENT HENT: Present normocephalic, Present atraumatic, Present oropharynx clear/moist, Present nose normal HENT L/R: Present left ext ear normal, Present right ext ear normal EYES Eyes: Reports PERRL, Reports conjunctivae normal NECK Neck: Present ROM normal PULMONARY Pulmonary: Present effort normal, Present breath sounds normal CARDIOVASCULAR Cardiovascular: Present regular rhythm, Present heart sounds normal, Present capillary refill normal, Present normal rate GASTROINTESTINAL Abdominal: Present soft, Present nontender, Present bowel sounds normal GENITOURINARY Genitourinary: Present exam deferred SKIN Skin: Present warm, Present dry MUSCULOSKELETAL Musculoskeletal: Present ROM normal NEUROLOGICAL Neurological: Present alert, Present oriented x 3, Present no gross motor or sensory deficits PSYCHOLOGICAL Psychological: Present mood/affect normal, Present judgement normal Results Laboratory Result Diagram: 01/17/20 1227 01/17/20 1227 Laboratory Laboratory Tests Test 01/17/20 12:27 White Blood Count 4.56 x10e3/uL (4.8-10.8) Red Blood Count 3.35 x10e6/uL (3.6-5.1) Hemoglobin 10.4 g/dL (12.0-16.0) Hematocrit 32.2 % (34.2-44.1) Mean Corpuscular Volume 96.1 fL (81-99) Mean Corpuscular Hemoglobin 31.0 pg (28-32) Mean Corpuscular Hemoglobin Concent 32.3 g/dL (31-35) Red Cell Distribution Width 13.6 % (11.7-14.4) Platelet Count 253 x10e3/uL (140-360) Neutrophils (%) (Auto) 49.1 % (38.7-80.0) Lymphocytes (%) (Auto) 39.7 % (18.0-39.1) Monocytes (%) (Auto) 8.6 % (4.4-11.3) Eosinophils (%) (Auto) 1.8 % (0.0-6.0) Basophils (%) (Auto) 0.4 % (0.0-1.0) Neutrophils # (Auto) 2.2 (2.1-6.9) Lymphocytes # (Auto) 1.8 (1.0-3.2) Monocytes # (Auto) 0.4 (0.2-0.8) Eosinophils # (Auto) 0.1 (0.0-0.4) Basophils # (Auto) 0.0 (0.0-0.1) Absolute Immature Granulocyte (auto 0.02 x10e3/uL (0-0.1) Sodium Level 146 mmol/L (136-145) Potassium Level 2.3 mmol/L (3.5-5.1) Chloride Level 103 mmol/L (98-107) Carbon Dioxide Level 30 mmol/L (22-29) Anion Gap 15.3 mmol/L (8-16) Blood Urea Nitrogen 16 mg/dL (7-26) Creatinine 0.95 mg/dL (0.57-1.11) Estimat Glomerular Filtration Rate 58 ML/MIN (60-) BUN/Creatinine Ratio 17 (6-25) Glucose Level 99 mg/dL (74-118) Calcium Level 8.2 mg/dL (8.4-10.2) Magnesium Level 1.2 MG/DL (1.3-2.1) Total Bilirubin 0.3 mg/dL (0.2-1.2) Aspartate Amino Transf (AST/SGOT) 16 IU/L (5-34) Alanine Aminotransferase (ALT/SGPT) 8 IU/L (0-55) Alkaline Phosphatase 46 IU/L (40-150) Total Protein 5.7 g/dL (6.5-8.1) Albumin 2.8 g/dL (3.5-5.0) Globulin 2.9 g/dL (2.3-3.5) Albumin/Globulin Ratio 1.0 (0.8-2.0) Lab results reviewed: Yes Assessment & Plan Medical Decision Making MDM CHECK CBC, CHEM'S, MAGNESIUM - EVAL HYPOKALEMIA, ELECTROLYTE ABNL, RENAL INSUFF Reassessment Reassessment K = 2.3, MAGNESIUM SLIGHTLY DECR AT 1.2 - WILL GIVE MAG FIRST, PO AND IV POTASSIUM. I DISCUSSED WITH PT THAT WE ARE CURRENTLY IN DISASTER MODE WITH [facility]IBE[facility] AND THERE ARE NO BEDS AVAILABLE - SHE UNDERSTANDS, DOES NOT WANT TO BE TRANSFERRED, UNDERSTANDS SHE WILL BE GOING HOME BUT WILL BE HERE A FEW HRS FOR IV KCL DC HOME, TAKE 40 mEQ PO TONIGHT AT 8PM, 40 mEQ po qday, F/U PCP 2 DAYS FOR REPEAT POTASSIUM CHECK Assessment & Plan Final Impression: (1) Hypokalemia (2) Hypomagnesemia Depart Disposition: HOME, SELF-CARE Last Vital Signs Date Time Temp Pulse Resp B/P (MAP) Pulse Ox O2 Delivery O2 Flow Rate FiO2 01/17/20 12:46 74 17 204/83 96 01/17/20 12:11 97.9 Room Air Home Meds Reported Medications Hydrocodone Bit/Acetaminophen (NORCO 5-325 TABLET) 1 Each Tablet, 1 EACH PO Q4HR PRN for PAIN, #40 TAB NORCO 5/325 1-2 TABS NEEDED EVERY 4-6 HOURS FOR PAIN 06/08/14 [lumigan eye drops] No Conflict Check, HS 06/06/14 Calcium Carbonate/Vitamin D3 (CALCIUM 600 + D3 SOFTGEL) 1 Each Capsule, PO DAILY 06/05/14 Aspirin (ASPIR 81) 81 Mg Tablet.dr, 81 MG PO DAILY 06/05/14 [Potassium Gluconate] No Conflict Check, PO BID 06/05/14 [Fish Oil] No Conflict Check, PO 2BID 06/05/14 Multivitamin (MULTIVITAMINS) 1 Each Capsule, PO DAILY 06/05/14 [Probiotic] No Conflict Check, PO DAILY 06/05/14 Acetaminophen With Codeine (TYLENOL WITH CODEINE #3 TABLET) 1 Each Tablet, 300 MG PO PRN, TAB 06/05/14 Fluconazole (FLUCONAZOLE) 150 Mg Tablet, 150 MG PO WKLY 06/05/14 Omeprazole (OMEPRAZOLE) 20 Mg Tablet.dr, 20 MG PO DAILY 06/05/14 Amitriptyline Hcl (AMITRIPTYLINE HCL) 10 Mg Tablet, 10 MG PO HS, TAB 06/05/14 Levothyroxine Sodium (LEVOTHYROXINE SODIUM) 75 Mcg Tablet, 75 MCG PO DAILY, TAB 06/05/14 Amlodipine Besylate (AMLODIPINE BESYLATE) 10 Mg Tablet, 10 MG PO HS, TAB 06/05/14 Clonidine Hcl (CLONIDINE HCL) 0.1 Mg Tablet, 0.1 MG PO TID, TAB 06/05/14 Metoprolol Succinate (METOPROLOL SUCCINATE) 100 Mg Tab.er.24h, 100 MG PO DAILY 06/05/14 Discontinued Reported Medications Triamterene/Hydrochlorothiazid (TRIAMTERENE-HCTZ 75-50 MG TAB) 1 Each Tablet, PO DAILY 06/05/14 Medications in the ED Magnesium Sulfate 50 ml @ 25 mls/hr ONCE ONCE IV Last administered on 01/17/20at 13:47; Admin Dose 50 MLS/HR; Start 01/17/20 at 13:30; Stop 01/17/20 at 15:29 Potassium Chloride 40 meq NOW STAT PO Last administered on 01/17/20at 13:46; Ad min Dose 40 MEQ; Start 01/17/20 at 13:19; Stop 01/17/20 at 13:20 Potassium Chloride 100 ml @ 100 mls/hr Q1H IV ; Start 01/17/20 at 13:30; Stop 01/17/20 at 16:29 Sodium Chloride 500 ml @ 125 mls/hr Q4H ONCE IV ; Start 01/17/20 at 13:30; Stop 01/17/20 at 17:29 KARRIE CRESPO MD Jan 17, 2020 14:31
[2020-01-17] MEDS: POTASSIUM CHLORIDE 10MEQ/100ML 100 ML IV SCH ×3 (15:00→17:05)
[2020-01-17] MEDS ORDERED: CLONIDINE HCL 0.1 MG TAB PO ONE (17:00)
--- NOTE | 2020-01-17 17:00 | NUR ---
Dr Hines stated no redraw and potassium recheck after 3 runs, read back and verified.
[2020-01-17] MEDS ORDERED: SODIUM CHLORIDE 0.9% 250ML 250 ML IV STA (18:36)
[2020-01-17] MEDS ORDERED: SODIUM CHLORIDE 0.9% 250ML 250 ML ONE (18:36)
--- NOTE | 2020-01-17 18:53 | NUR ---
report to Brien CHURCHILL
== END 2020-01-17 19:30 | disposition home or self-care (01) ==
LOC: ER 12:16
DX: E87.6 Hypokalemia (principal); E83.42 Hypomagnesemia; I10 Essential (primary) hypertension; E78.5 Hyperlipidemia, unspecified; H40.9 Unspecified glaucoma
CPT/HCPCS: 36415; 80053; 81003; 82553; 83735; 84484; 85025; 99283; J3475; J3480; J7040; J7050

== ENCOUNTER 2022-09-25 23:02 | Emergency (ER) | payer MEDICARE, OTHER ==
[~2022-09-25] VITALS: Ht 154.9 cm; Wt 76.2 kg
[2022-09-26] MEDS ORDERED: ACETAMINOPHEN-1 EAC4 PO (02:00)
[2022-09-26] MEDS ORDERED: ACETAMINOPHEN/CODEINE 300MG - 30MG TAB PO ONE (02:00)
[2022-09-26] MEDS ORDERED: ACETAMINOPHEN/CODEINE 300MG - 30MG TAB ONE (02:00)
== END 2022-09-26 02:21 | disposition home or self-care (01) ==
LOC: ER 23:12
DX: S52.591A Other fractures of lower end of right radius, initial encounter for closed fracture (principal); S00.83XA Contusion of other part of head, initial encounter; S20.211A Contusion of right front wall of thorax, initial encounter; W01.0XXA Fall on same level from slipping, tripping and stumbling without subsequent striking against object, initial encounter; Y93.01 Activity, walking, marching and hiking; Y92.89 Other specified places as the place of occurrence of the external cause; I10 Essential (primary) hypertension; E78.5 Hyperlipidemia, unspecified; E03.9 Hypothyroidism, unspecified; H40.9 Unspecified glaucoma; F32.A Depression, unspecified
CPT/HCPCS: 70450; 71101; 72125; 99284